=== PATIENT | male | born 1945 | race Caucasian/White ===

== ENCOUNTER → 2017-03-28 | Outpatient (REF) | payer MEDICARE ==
[2017-03-28 12:35] LABS: ALBUMIN 3.3 GM/DL (3.2-5.2); ALBUMIN/GLOBULIN RATIO 0.87 (1.00-1.93); ALKALINE PHOSPHATASE 465 U/L (45-117); ALT/SGPT 20 U/L (12-78); ANION GAP 6 MEQ/L (8-16); AST/SGOT 19 U/L (7-37); BILIRUBIN,TOTAL 0.4 MG/DL (0.2-1.0); BLOOD UREA NITROGEN 14 MG/DL (7-18); CALCIUM LEVEL 8.4 MG/DL (8.8-10.2); CARBON DIOXIDE LEVEL 30 MEQ/L (21-32); CHLORIDE LEVEL 105 MEQ/L (98-107); CHOLESTEROL LEVEL 276 MG/DL (<200); CREATININE FOR GFR 0.89 MG/DL (0.70-1.30); GLOMERULAR FILTRATION RATE > 60.0 (>42); GLUCOSE, FASTING 108 MG/DL (83-110); POTASSIUM SERUM 3.6 MEQ/L (3.5-5.1); SODIUM LEVEL 141 MEQ/L (136-145); TOTAL PROTEIN 7.1 GM/DL (6.4-8.2); TRIGLYCERIDES LEVEL 223 MG/DL (<150)
== END ==
LOC: M SFHCCLAY 07:31
PROVIDERS: ATTEND Family Medicine
DX: Z00.00 Encounter for general adult medical examination without abnormal findings (principal); R97.20 Elevated prostate specific antigen [PSA]; Z79.899 Other long term (current) drug therapy
CPT/HCPCS: 80053; 80061; 84154; 84443; G0103

== ENCOUNTER → 2017-04-01 | Outpatient (REF) | payer MEDICARE | LOC: M SMT 13:00 | PROVIDERS: ATTEND Nurse Practitioner Family | DX: R35.0 Frequency of micturition (principal); R39.15 Urgency of urination | CPT/HCPCS: 51702; 51798; 81001; 87086; G0463 ==

== ENCOUNTER → 2017-04-12 | Outpatient (CLI) | payer MEDICARE ==
--- NOTE | 2017-04-12 12:18 | REP ---
Prostate sonography: History: Elevated PSA. Sonographic findings: Trans rectal prostate sonography demonstrates unremarkable seminal vesicles. Prostate gland is heterogeneously enlarged with calcifications and cystic changes noted. Glandular dimensions are measured at 4.1 x 3.7 x 4.2 cm with a calculated glandular volume of 39.2 ml. There is a 1.8 x 1.2 cm nodule on the right side of the prostate gland. Transrectal sonographic guidance provided to Dr. Alicea who performed trans rectal ultrasound guided needle biopsy procedure . Signed by Octavio Rosales MD 04/12/2017 12:10 P
== END ==
LOC: M SMT PRO 08:51
PROVIDERS: ATTEND Urology
DX: R97.20 Elevated prostate specific antigen [PSA] (principal); R39.89 Other symptoms and signs involving the genitourinary system
CPT/HCPCS: 55700; 76872; 76942; G0416

== ENCOUNTER → 2017-04-15 | Outpatient (CLI) | payer MEDICARE ==
[~2017-04-15] MED LIST: ISOVUE-370 76% 100ML VIAL (Q9967) As Ordered ONE
--- NOTE | 2017-04-15 10:24 | REP ---
CT pelvis with IV but without oral contrast: History: Prostate carcinoma. CT contrast dose: 100 ml of Isovue [address] findings: There is a large left inguinal hernia noted containing an unobstructed loop of sigmoid colon. There is a large amount of pericolonic fat within the hernia sac as well. There is diffuse bladder wall thickening. The bladder is displaced somewhat to the right because of the hernia. Prostate is somewhat enlarged and heterogeneous. The seminal vesicles are somewhat asymmetric with fluid in the right seminal vesicle. No pelvic masses seen. There is one normal-sized internal iliac lymph node on the right visible on image number 59 of 117 in series 201 of today's study. This normal-sized lymph node measures 6 mm in greatest dimension. There is a normal fat replaced external iliac lymph node on the left a little higher in the pelvis. There is no visible adenopathy. Atherosclerotic calcification is seen in the aorta and iliac arteries. Small and large intestinal bowel loops are normal. No other abdominal wall defect is seen. There are degenerative changes in the lower lumbar spine. In addition, however, the bone window settings demonstrate widespread areas of sclerosis consistent with blastic skeletal metastases. These are seen in the lower two lumbar spine vertebrae as well as the sacrum and both iliac bones and the right proximal femur. Impression: 1. Fairly widespread blastic metastatic pattern in the visualized skeleton. 2. Large left inguinal hernia containing an unobstructed loop of sigmoid colon and a large amount of abdominal fat. 3. No evidence of adenopathy. The seminal vesicles are somewhat asymmetric with fluid in the right seminal vesicle. Signed by Octavio Rosales MD 04/15/2017 11:14 A
--- NOTE | 2017-04-15 14:02 | REP ---
Whole body radionuclide bone scan: History: Prostate carcinoma. No comparison bone scan. Technique: 22.0 mCi technetium 99m MDP is injected and standard bone scan images are acquired. Planar and whole body images are included. Scintigraphic findings: There is widespread multifocal metastatic pattern of increased uptake in the axial skeleton. Lesions are seen in both femurs, both humeri, both scapulae, throughout the pelvis, and within the cervical, thoracic, and lumbar spine. There are two or three calvarial lesions and there are mandibular lesions bilaterally as well. Uptake is observed in bilateral kidneys and in the urinary bladder. There is some arthritic uptake in the knees. 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 Signed by Octavio Rosales MD 04/15/2017 02:46 P
== END ==
LOC: M RAD 09:29
PROVIDERS: ATTEND Urology
DX: C61 Malignant neoplasm of prostate (principal)
CPT/HCPCS: 72193; 78306; A9503; Q9967

== ENCOUNTER → 2017-04-27 | Outpatient (REF) | payer OTHER | LOC: M LAB REF 13:29 | PROVIDERS: ATTEND Internal Medicine Medical Oncology | DX: C61 Malignant neoplasm of prostate (principal) ==

== ENCOUNTER → 2017-05-17 | Outpatient (REF) | payer MEDICARE | LOC: M SFHCCLAY 09:12 | DX: C61 Malignant neoplasm of prostate (principal) | CPT/HCPCS: 84153 ==

== ENCOUNTER → 2017-05-27 | Outpatient (REF) | payer MEDICARE ==
[2017-05-27 14:49] LABS: TESTOSTERONE 22 NG/DL (241-827)
== END ==
LOC: M LAB REF 13:20
DX: C61 Malignant neoplasm of prostate (principal)
CPT/HCPCS: 84403

== ENCOUNTER → 2017-06-23 | Outpatient (REF) | payer MEDICARE ==
[2017-06-24 14:11] LABS: PSA TOTAL 74.9 ng/mL (0.0-4.0)
== END ==
LOC: M SFHCCLAY 08:07
DX: R97.20 Elevated prostate specific antigen [PSA] (principal)
CPT/HCPCS: 84154

== ENCOUNTER → 2017-10-17 | Outpatient (REF) | payer MEDICARE ==
[2017-10-17 14:45] LABS: TESTOSTERONE < 7 NG/DL (241-827)
[2017-10-17 15:00] LABS: PROSTATIC SPECIFIC AG MONITOR 0.31 NG/ML (< 4.0)
== END ==
LOC: M LAB REF 14:05
DX: C61 Malignant neoplasm of prostate (principal)
CPT/HCPCS: 84403

== ENCOUNTER 2017-11-16 12:08 | Emergency (ER) | payer MEDICARE ==
[2017-11-16] MEDS: ACETAMINOPHEN 325 MG TAB PO (12:55)
[2017-11-16 13:02] LABS: HEMATOCRIT 39.3 % (42.0-52.0); MEAN CORPUSCULAR HEMOGLOBIN 31.2 pg (27.0-33.0); MEAN CORPUSCULAR HGB CONC 33.1 g/dl (32.0-36.5); MEAN CORPUSCULAR VOLUME 94.2 fl (80.0-96.0); PLATELET COUNT, AUTOMATED 168 10^3/uL (150-450); RED BLOOD COUNT 4.17 10^6/uL (4.30-6.10); RED CELL DISTRIBUTION WIDTH 15.5 % (11.5-14.5); WHITE BLOOD COUNT 4.8 10^3/uL (4.0-10.0)
[2017-11-16 13:08] LABS: AMORPHOUS SEDIMENT RFX SMALL (NEGATIVE); KETONE, URINE AUTO RFX TRACE mg/dL (NEGATIVE); LEUKOCYTE ESTERASE UR AUTO RFX TRACE (NEGATIVE); NITRITE, URINE AUTO RFX NEGATIVE (NEGATIVE); RBC, URINE AUTO RFX 3 /HPF (0-3); SPECIFIC GRAVITY UR AUTO RFX 1.014 (1.002-1.035); SQUAM EPITHELIAL CELL UR AURFX 0 /HPF (0-6); WBC, URINE AUTO RFX 33 /HPF (0-3)
[2017-11-16 13:21] LABS: ANION GAP 8 MEQ/L (8-16); BLOOD UREA NITROGEN 14 MG/DL (7-18); CALCIUM LEVEL 7.9 MG/DL (8.8-10.2); CARBON DIOXIDE LEVEL 27 MEQ/L (21-32); CHLORIDE LEVEL 100 MEQ/L (98-107); CREATININE FOR GFR 0.98 MG/DL (0.70-1.30); GLOMERULAR FILTRATION RATE > 60.0 (>42); GLUCOSE, FASTING 102 MG/DL (70-100); POTASSIUM SERUM 3.8 MEQ/L (3.5-5.1); SODIUM LEVEL 135 MEQ/L (136-145)
[2017-11-16] MEDS: CIPROFLOXACIN 500 MG TAB PO (14:05)
== END 2017-11-16 14:05 | disposition home or self-care (01) ==
LOC: M ED 12:08
DX: N39.0 Urinary tract infection, site not specified (principal); C61 Malignant neoplasm of prostate; Z79.899 Other long term (current) drug therapy
CPT/HCPCS: 80048

== ENCOUNTER → 2017-11-23 | Outpatient (REF) | payer MEDICARE ==
[2017-11-23 18:39] LABS: PROSTATIC SPECIFIC AG MONITOR 0.24 NG/ML (< 4.0)
== END ==
LOC: M LABSMT 11:44
DX: C61 Malignant neoplasm of prostate (principal)
CPT/HCPCS: 84153

== ENCOUNTER → 2018-05-30 | Outpatient (REF) | payer MEDICARE ==
[~2018-05-30] MED LIST changes: +CALC600T57 PO; +CIPR-249 PO; -ISOVUE-370 76% 100ML VIAL (Q9967) As Ordered ONE; +PRED5PAK PO; +PRED5TA PO; +VITATAB73 PO; +XGEVINJ SC; +ZYTI250T PO
== END ==
LOC: M LABSMT 09:26
PROVIDERS: ATTEND Urology
DX: C61 Malignant neoplasm of prostate (principal)

== ENCOUNTER → 2018-07-21 | Outpatient (CLI) | payer MEDICARE ==
--- NOTE | 2018-07-21 13:34 | REP ---
Whole body radionuclide bone scan: Comparison is 04/15/2017. On the comparison study there was widespread skeletal metastatic disease. On the current study this has dramatically improved. There is a focus of uptake in the mid shaft of the right femur. There is mildly persistent uptake in the hip intertrochanteric areas bilaterally. No other metastatic foci are identified on the current study. There is a bilaterally symmetric pattern of degenerative uptake in the shoulders and knees. Impression: Dramatic improvement of the previously identified widespread skeletal metastatic disease. The study is performed with 22 millicuries of technetium 99m labeled MDP. Electronically Signed by Sergo Win MD 07/21/2018 01:26 P
== END ==
LOC: M RAD 09:19
PROVIDERS: ATTEND Internal Medicine Hematology & Oncology
DX: C79.51 Secondary malignant neoplasm of bone (principal); C61 Malignant neoplasm of prostate
CPT/HCPCS: 78306; A9503

== ENCOUNTER → 2018-10-23 | Outpatient (CLI) | payer MEDICARE ==
[~2018-10-23] MED LIST changes: +GASTROGRAFIN SOLUTION 30ML (Q9963) As Ordered ONE; +ISOVUE-370 76% 100ML VIAL (Q9967) As Ordered ONE
--- NOTE | 2018-10-23 16:19 | REP ---
CT CHEST WITH IV CONTRAST: TECHNIQUE: Axial contrast enhanced images from the thoracic inlet to the upper abdomen using 100 mL Isovue 370 intravenous contrast material with multiplanar reformations. The lungs show no suspicious nodule. A tiny calcified granuloma is seen in the left upper lobe peripherally. There is no evidence of mediastinal, hilar or chest wall lymphadenopathy. There is no pleural or pericardial effusion. The heart is normal in size. Thoracic aorta demonstrates some minor plaquing with mild ectasia of the ascending thoracic aorta 4 cm in diameter. Visualized osseous structures demonstrates heterogenous sclerotic densities consistent with diffuse blastic metastases as seen on prior bone scans. IMPRESSION: No suspicious pulmonary nodule. No adenopathy in the chest. Diffuse heterogenous sclerotic densities throughout the visualized osseous structures compatible with diffuse skeletal metastases as seen on prior nuclear bone scans. Electronically Signed by Sergo Carias MD 10/24/2018 12:39 P
--- NOTE | 2018-10-23 16:46 | REP ---
CT ABDOMEN WITH ORAL AND IV CONTRAST: TECHNIQUE: Axial contrast enhanced images from the lung bases to the pubic symphysis using 100 mL Isovue 370 intravenous contrast material with multiplanar reformations. The liver demonstrates several hypodensities in the left and right lobes. The largest is in the anterior segment of the right lobe inferiorly and measures approximately 2.4 cm in diameter. Density measurements are consistent with a cyst. The other subcentimeter nodular densities in the right and left lobes also appear fairly low in density and probably represent smaller cysts. No definite enhancing liver mass is seen. Spleen is unremarkable as are the adrenals and pancreas. No abnormality is seen of the kidneys. There is no hydronephrosis. There is mild atherosclerotic calcifications of the abdominal aorta without aneurysm. I see no adenopathy, free air or free fluid. No bowel wall thickening is seen in the visualized bowel loops. Diffuse sclerotic densities throughout the visualized osseous structures are consistent with extensive blastic metastases as seen on prior nuclear bone scans. There is a small midline ventral hernia in the upper abdomen, containing only intraperitoneal fat and the aperture measuring 1.4 cm in diameter. IMPRESSION: Multiple cysts in the liver. No suspicious mass or adenopathy. Diffuse blastic metastases in the visualized osseous structures as seen on prior nuclear bone scans. Electronically Signed by Sergo Carias MD 10/24/2018 12:39 P
== END ==
LOC: M RAD 13:07
PROVIDERS: ATTEND Nurse Practitioner Family
DX: C61 Malignant neoplasm of prostate (principal); R97.20 Elevated prostate specific antigen [PSA]
CPT/HCPCS: 71260; 74160; Q9963; Q9967

== ENCOUNTER → 2019-01-02 | Outpatient (CLI) | payer MEDICARE ==
[~2019-01-02] MED LIST changes: -GASTROGRAFIN SOLUTION 30ML (Q9963) As Ordered ONE; -ISOVUE-370 76% 100ML VIAL (Q9967) As Ordered ONE
--- NOTE | 2019-01-02 15:15 | REP ---
WHOLE BODY BONE SCAN: Following the intravenous administration of 21.7 mCi of technetium-99m MDP, patient's whole body is imaged in the anterior and posterior projections with additional oblique and lateral views obtained. Comparison made with prior studies of 07/21/2018 and 04/15/2017. A small focus of increased uptake is seen in the proximal right humeral shaft. New focal increased uptake is seen in the medial end of the right clavicle. Small focus of increased uptake in the mid shaft of the right femur is unchanged. There is mild heterogeneous increased uptake in the remaining more proximal femurs bilaterally which is stable. No other new foci of increased uptake are seen in the axial or appendicular skeleton. Renal and bladder activity are seen. IMPRESSION: New small focus of increased uptake in the proximal shaft of the right humerus and also in the medial end of the right clavicle. Scintigraphic appearance of the skeletal system is otherwise stable compared to the prior study of 07/21/2018. Electronically Signed by Sergo Carias MD 01/03/2019 01:01 P
== END ==
LOC: M RAD 07:39
PROVIDERS: ATTEND Internal Medicine Hematology & Oncology
DX: C61 Malignant neoplasm of prostate (principal); C79.51 Secondary malignant neoplasm of bone
CPT/HCPCS: 78306; A9503

== ENCOUNTER → 2019-06-12 | Outpatient (CLI) | payer MEDICARE ==
[~2019-06-12] MED LIST changes: +DECA6TAB PO; +MACR100C42 PO; +XTAN40CA PO
--- NOTE | 2019-06-12 13:47 | REP ---
Whole body radionuclide bone scan: Comparison is 01/02/2019. The uptake in the right clavicle medially has increased in size and activity. The uptake in the proximal right humeral shaft is increased in size and intensity. There is a new focus of faintly visible uptake in the proximal shaft of the left humerus. There is a small focus of uptake in the mid shaft of the right humerus, not significantly changed. There is a small faintly visible new focus of uptake in the proximal shaft of the left femur . There is mild uptake in the femoral intertrochanteric zones bilaterally, unchanged. There is a degenerative pattern of uptake in the medial joint lines of the knees bilaterally, unchanged. Impression: New small faintly visible foci of uptake in the proximal shaft of the left humerus and in the proximal shaft of the left femur. The foci in the right clavicle and proximal right humeral shaft have increased. The focus in the right femoral midshaft is unchanged. Mild uptake in the femoral intertrochanteric zones is unchanged. The study is performed with 22 mCi of technetium 99m labeled MDP. Electronically Signed by Sergo Win MD 06/12/2019 01:39 P
== END ==
LOC: M RAD 09:01
PROVIDERS: ATTEND Internal Medicine Hematology
DX: C61 Malignant neoplasm of prostate (principal)
CPT/HCPCS: 78306; A9503

== ENCOUNTER → 2019-09-05 | Outpatient (CLI) | payer MEDICARE ==
[~2019-09-05] MED LIST changes: +ERLE60TA PO; +GASTROGRAFIN SOLUTION 30ML (Q9963) As Ordered ONE; +ISOVUE-370 76% 100ML VIAL As Ordered ONE; +ONDA8TAB10 PO; +PRED10TA2 PO
--- NOTE | 2019-09-05 09:48 | REP ---
CT CHEST WITH IV CONTRAST: TECHNIQUE: Axial contrast enhanced images from the thoracic inlet to the upper abdomen using 100 mL Isovue 370 intravenous contrast material with multiplanar reformations. COMPARISON: 10/23/2018 No suspicious nodule is seen in either lung. There is a tiny calcified granuloma in the left apex. There is mild scattered interstitial fibrotic change. There is no mediastinal, hilar or chest wall lymphadenopathy. Thoracic aorta is normal in caliber with no aneurysm or dissection. The heart is normal in size. There is no pleural or pericardial effusion. Diffuse heterogeneous and sclerotic densities are seen throughout the visualized osseous structures consistent with diffuse skeletal metastases. The appearance is unchanged compared to a prior study. IMPRESSION: Stable CT of the chest. No new pulmonary nodule or adenopathy. Diffuse sclerotic densities throughout the visualized osseous structures compatible with diffuse skeletal metastases, as seen on prior studies. Electronically Signed by Sergo Carias MD 09/05/2019 11:17 A
--- NOTE | 2019-09-05 09:54 | REP ---
CT ABDOMEN AND PELVIS WITH ORAL AND IV CONTRAST: TECHNIQUE: Axial contrast enhanced images from the lung bases to the pubic symphysis using 100 mL Isovue 370 intravenous contrast material with multiplanar reformations. COMPARISON: 10/23/2018 and 04/15/2017. Once again there are multiple small cysts scattered throughout the liver not significantly changed compared to a prior study. No new suspicious liver mass is seen. The spleens normal in size with no intrinsic abnormality. The adrenal glands are normal. No pancreatic mass is seen. There is no biliary dilatation or pancreatic duct dilatation. The kidneys are unremarkable with no hydronephrosis. There is mild atherosclerotic calcification of the abdominal aorta without aneurysm. There is no adenopathy. There is no free air or free fluid. There is no bowel wall thickening. No pelvic mass is seen. There is a large left inguinal hernia containing sigmoid colon. There is no evidence of strangulation or bowel obstruction. There are sigmoid diverticula present. There is a small ventral hernia in the supraumbilical abdominal wall, the aperture is approximately 1.4 cm. This contains non-inflamed fat. Diffuse sclerotic densities throughout the visualized osseous structures are compatible with diffuse skeletal metastases. IMPRESSION: No change since the prior studies. Stable liver cysts. No new abdominal or pelvic mass or adenopathy. Superior ventral hernia in the midline contains noninflamed fat. Large left inguinal hernia contains a loop of sigmoid colon, with no evidence of strangulation or bowel obstruction. Diffuse blastic metastases throughout the visualized osseous structures appear essentially unchanged. Electronically Signed by Sergo Carias MD 09/05/2019 11:18 A
--- NOTE | 2019-09-05 12:34 | REP ---
REASON FOR EXAM: Followup. Comparison examination is 06/12/2019. After the intravenous administration of 22 millicuries of technetium 99m MDP, a total body bone scan was obtained. The abnormal increased radionuclide accumulation seen in the right humerus, right clavicle, and right femur has all worsened. In addition, there is marked abnormal increased radiotracer within the skull and significant abnormal increased radionuclide accumulation seen in the imaged axial and appendicular skeleton all representing a change from the prior exam. IMPRESSION: Diffuse skeletal metastasis has developed since the last exam. Electronically Signed by Hung Hermosillo DO 09/05/2019 03:48 P
== END ==
LOC: M RAD 07:12
PROVIDERS: ATTEND Internal Medicine Medical Oncology
DX: C61 Malignant neoplasm of prostate (principal)
CPT/HCPCS: 71260; 74177; 78306; A9503; Q9963; Q9967

== ENCOUNTER → 2019-09-07 | Outpatient (CLI) | payer MEDICARE ==
[~2019-09-07] MED LIST changes: -GASTROGRAFIN SOLUTION 30ML (Q9963) As Ordered ONE; -ISOVUE-370 76% 100ML VIAL As Ordered ONE
== END ==
LOC: M LAB 09:46
PROVIDERS: ATTEND Internal Medicine Hematology
DX: C61 Malignant neoplasm of prostate (principal)

== ENCOUNTER → 2019-09-17 | Outpatient (REF) | payer MEDICARE ==
[2019-09-17 11:59] LABS: BASO # 0.1 10^3/uL (0.0-0.2); BASO % 0.8 % (0.0-1.0); EOS # 0.1 10^3/uL (0.0-0.5); EOS % 0.7 % (0.0-3.0); HEMATOCRIT 33.3 % (42.0-52.0); LYMPH # 1.9 10^3/uL (1.5-5.0); LYMPH % 11.3 % (24.0-44.0); MEAN CORPUSCULAR HEMOGLOBIN 29.2 pg (27.0-33.0); MEAN CORPUSCULAR VOLUME 97.1 fl (80.0-96.0); MONO % 5.8 % (0.0-5.0); NEUTROPHILS # 10.5 10^3/uL (1.5-8.5); NEUTROPHILS % 62.1 % (36.0-66.0); PLATELET COUNT, AUTOMATED 141 10^3/uL (150-450); RED BLOOD COUNT 3.43 10^6/uL (4.30-6.10); WHITE BLOOD COUNT 16.8 10^3/uL (4.0-10.0)
[2019-09-17 12:50] LABS: ALBUMIN 3.3 GM/DL (3.2-5.2); ALT/SGPT 20 U/L (12-78); BILIRUBIN,TOTAL 0.2 MG/DL (0.2-1.0); BLOOD UREA NITROGEN 17 MG/DL (7-18); CALCIUM LEVEL 8.4 MG/DL (8.8-10.2); CARBON DIOXIDE LEVEL 27 MEQ/L (21-32); CHLORIDE LEVEL 106 MEQ/L (98-107); CREATININE FOR GFR 0.82 MG/DL (0.70-1.30); GLOMERULAR FILTRATION RATE > 60.0 (>42); GLUCOSE, FASTING 77 MG/DL (70-100); POTASSIUM SERUM 4.5 MEQ/L (3.5-5.1); SODIUM LEVEL 141 MEQ/L (136-145); TOTAL PROTEIN 6.5 GM/DL (6.4-8.2)
== END ==
LOC: M LABDRAWC 11:36
PROVIDERS: ATTEND Internal Medicine Hematology
DX: C61 Malignant neoplasm of prostate (principal)

== ENCOUNTER → 2019-09-27 | Outpatient (REF) | payer MEDICARE ==
[2019-09-27 11:43] LABS: BASO # 0.1 10^3/uL (0.0-0.2); BASO % 1.3 % (0.0-1.0); EOS # 0.1 10^3/uL (0.0-0.5); EOS % 0.6 % (0.0-3.0); HEMATOCRIT 32.4 % (42.0-52.0); HEMOGLOBIN 9.7 g/dl (13.5-17.5); LYMPH # 1.3 10^3/uL (1.5-5.0); LYMPH % 13.4 % (24.0-44.0); MEAN CORPUSCULAR HEMOGLOBIN 29.1 pg (27.0-33.0); MEAN CORPUSCULAR HGB CONC 29.9 g/dl (32.0-36.5); MEAN CORPUSCULAR VOLUME 97.3 fl (80.0-96.0); MONO # 1.1 10^3/uL (0.0-0.8); MONO % 11.6 % (0.0-5.0); NEUTROPHILS # 6.1 10^3/uL (1.5-8.5); NEUTROPHILS % 64.8 % (36.0-66.0); PLATELET COUNT, AUTOMATED 155 10^3/uL (150-450); RED BLOOD COUNT 3.33 10^6/uL (4.30-6.10); WHITE BLOOD COUNT 9.4 10^3/uL (4.0-10.0)
[2019-09-27 13:05] LABS: ALBUMIN 3.4 GM/DL (3.2-5.2); ALT/SGPT 20 U/L (12-78); BILIRUBIN,TOTAL 0.3 MG/DL (0.2-1.0); BLOOD UREA NITROGEN 13 MG/DL (7-18); CALCIUM LEVEL 7.9 MG/DL (8.8-10.2); CARBON DIOXIDE LEVEL 26 MEQ/L (21-32); CHLORIDE LEVEL 104 MEQ/L (98-107); CREATININE FOR GFR 0.75 MG/DL (0.70-1.30); GLOMERULAR FILTRATION RATE > 60.0 (>42); GLUCOSE, FASTING 105 MG/DL (70-100); POTASSIUM SERUM 3.8 MEQ/L (3.5-5.1); SODIUM LEVEL 138 MEQ/L (136-145); TOTAL PROTEIN 6.9 GM/DL (6.4-8.2)
== END ==
LOC: M LABDRAWC 11:25
PROVIDERS: ATTEND Internal Medicine Hematology
DX: C61 Malignant neoplasm of prostate (principal)

== ENCOUNTER → 2019-11-08 | Outpatient (REF) | payer MEDICARE ==
[2019-11-08 14:07] LABS: BASO # 0.1 10^3/uL (0.0-0.2); BASO % 0.7 % (0.0-1.0); EOS # 0.1 10^3/uL (0.0-0.5); EOS % 1.1 % (0.0-3.0); HEMATOCRIT 22.3 % (42.0-52.0); LYMPH # 1.6 10^3/uL (1.5-5.0); LYMPH % 19.2 % (24.0-44.0); MEAN CORPUSCULAR HEMOGLOBIN 28.4 pg (27.0-33.0); MEAN CORPUSCULAR HGB CONC 29.1 g/dl (32.0-36.5); MEAN CORPUSCULAR VOLUME 97.4 fl (80.0-96.0); MONO # 0.7 10^3/uL (0.0-0.8); MONO % 8.1 % (0.0-5.0); NEUTROPHILS # 4.6 10^3/uL (1.5-8.5); NEUTROPHILS % 56.8 % (36.0-66.0); PLATELET COUNT, AUTOMATED 190 10^3/uL (150-450); RED BLOOD COUNT 2.29 10^6/uL (4.30-6.10); WHITE BLOOD COUNT 8.1 10^3/uL (4.0-10.0)
[2019-11-08 14:11] LABS: HEMOGLOBIN 6.5 g/dl (13.5-17.5)
[2019-11-08 14:12] LABS: ALBUMIN 2.7 GM/DL (3.2-5.2); ALT/SGPT 61 U/L (12-78); BILIRUBIN,TOTAL 0.5 MG/DL (0.2-1.0); BLOOD UREA NITROGEN 18 MG/DL (7-18); CARBON DIOXIDE LEVEL 23 MEQ/L (21-32); CHLORIDE LEVEL 104 MEQ/L (98-107); CREATININE FOR GFR 0.88 MG/DL (0.70-1.30); GLOMERULAR FILTRATION RATE > 60.0 (>42); GLUCOSE, FASTING 115 MG/DL (70-100); POTASSIUM SERUM 4.1 MEQ/L (3.5-5.1); SODIUM LEVEL 139 MEQ/L (136-145); TOTAL PROTEIN 6.7 GM/DL (6.4-8.2)
== END ==
LOC: M LABDRAWC 13:35
PROVIDERS: ATTEND Internal Medicine Medical Oncology
DX: C61 Malignant neoplasm of prostate (principal)

== ENCOUNTER 2019-11-22 12:11 | Inpatient (IN) | payer MEDICARE ==
[~2019-11-22] VITALS: Ht 172.7 cm; Wt 84.7 kg
[2019-11-22] MEDS: PIPERACILLIN/TAZOBACTAM SOD 3.375 GM in D5W MINI-BAG PLUS 50 ML IV SCH ×2
[2019-11-22] MEDS ORDERED: ACETAMINOPHEN 325 MG TAB PO ONE (12:45)
[2019-11-22 13:06] LABS: HEMATOCRIT 22.1 % (42.0-52.0); MEAN CORPUSCULAR HEMOGLOBIN 28.9 pg (27.0-33.0); MEAN CORPUSCULAR HGB CONC 30.8 g/dl (32.0-36.5); RED BLOOD COUNT 2.35 10^6/uL (4.30-6.10); WHITE BLOOD COUNT 6.9 10^3/uL (4.0-10.0)
[2019-11-22 13:12] LABS: HEMOGLOBIN 6.8 g/dl (13.5-17.5); PLATELET COUNT, AUTOMATED 76 10^3/uL (150-450)
[2019-11-22 13:19] LABS: INR 1.32; PROTHROMBIN TIME 16.1 SECONDS (11.8-14.0)
[2019-11-22 13:41] LABS: ALBUMIN 2.9 GM/DL (3.2-5.2); ALT/SGPT 20 U/L (12-78); BILIRUBIN,DIRECT 0.2 MG/DL (0.0-0.2); BILIRUBIN,TOTAL 0.5 MG/DL (0.2-1.0); CK-MB VALUE MASS < 1.0 NG/ML (<3.6); CPK CREATINE PHOSPHOKINASE 91 U/L (39-308); LIPASE 92 U/L (73-393); TOTAL PROTEIN 6.8 GM/DL (6.4-8.2); TROPONIN I < 0.02 NG/ML (< 0.10)
[2019-11-22 14:01] LABS: ANISOCYTOSIS 2+; EOSINOPHILS 1 % (0-3); LYMPHOCYTES 19 % (16-44); METAMYELOCYTES 2 % (0-0); MONOCYTES 4 % (0-5); NEUTROPHILS 68 % (28-66); PLATELET ESTIMATE DECREASED (NORMAL)
--- NOTE | 2019-11-22 15:40 | REP ---
REASON FOR EXAM: Pyrexia. There are no priors for comparison. The imaged osseous structures are hyperdense. The technique utilized in obtaining the radiograph has magnified the cardiac silhouette and accentuated the interstitial markings. There is suspected mild cardiomegaly accentuated by technique. No acute patchy parenchymal opacities or pleural effusions are present. IMPRESSION: 1. Hyperdense axial and appendicular skeletal highly suspicious for metastatic prostate disease. Review of prior bone scan 09/05/2019 showed evidence of increased radionuclide accumulation in the axial and appendicular skeleton consistent with skeletal metastasis and prostate disease. 2. There is no evidence of acute cardiopulmonary disease. Electronically Signed by Hung Hermosillo DO 11/22/2019 04:59 P
[2019-11-22] MEDS ORDERED: NS 1,000 ML IV ONE (15:45)
[2019-11-22] MEDS ORDERED: PIPERACILLIN/TAZOBACTAM SOD 3.375 GM in D5W MINI-BAG PLUS 50 ML IV ONE (16:00)
[2019-11-22 16:34] LABS: FERRITIN 7032 NG/ML (26-388); IRON (FE) 43 UG/DL (65-175); PERCENT SATURATION 20.5 % (19.7-50.0); TOTAL IRON BINDING CAPACITY 210 UG/DL (250-450)
[2019-11-22 18:07] VITALS: BP 127/72
[2019-11-22 19:01] LABS: HEMATOCRIT 23.7 % (42.0-52.0); HEMOGLOBIN 7.4 g/dl (13.5-17.5)
[2019-11-22 20:38] VITALS: BP 153/70
[2019-11-22] MEDS ORDERED: VANCOMYCIN HCL 1,000 MG, VIAL MATE ADAPTER 1 EACH in D5W 250 ML IV ONE (21:00)
[2019-11-22] MEDS ORDERED: VANCOMYCIN HCL 750 MG, VIAL MATE ADAPTER 1 EACH in D5W 250 ML IV ONE (22:00)
[2019-11-22 22:52] VITALS: BP 127/73
[2019-11-22 23:07] VITALS: BP 142/73
[2019-11-23] VITALS (14 sets, daily range): BP systolic 109–142; BP diastolic 61–75
[2019-11-23] MEDS: traZODone 25MG PER 1/2 TABLET PO PRN ×2 (01:13→20:45)
[2019-11-23] MEDS: PIPERACILLIN/TAZOBACTAM SOD 3.375 GM in D5W MINI-BAG PLUS 50 ML IV SCH ×4 (05:00→23:37)
[2019-11-23 05:59] LABS: HEMOGLOBIN 7.4 g/dl (13.5-17.5); MEAN CORPUSCULAR HEMOGLOBIN 29.1 pg (27.0-33.0); MEAN CORPUSCULAR HGB CONC 32.2 g/dl (32.0-36.5); MEAN CORPUSCULAR VOLUME 90.6 fl (80.0-96.0); RED BLOOD COUNT 2.54 10^6/uL (4.30-6.10); WHITE BLOOD COUNT 6.6 10^3/uL (4.0-10.0)
[2019-11-23] MEDS ORDERED: VANCOMYCIN HCL 1,000 MG, VIAL MATE ADAPTER 1 EACH in D5W 250 ML IV SCH (06:00)
[2019-11-23 06:13] LABS: BLOOD UREA NITROGEN 8 MG/DL (7-18); CALCIUM LEVEL 6.8 MG/DL (8.8-10.2); CARBON DIOXIDE LEVEL 22 MEQ/L (21-32); CHLORIDE LEVEL 104 MEQ/L (98-107); CREATININE FOR GFR 0.58 MG/DL (0.70-1.30); GLOMERULAR FILTRATION RATE > 60.0 (>42); GLUCOSE, FASTING 123 MG/DL (70-100); POTASSIUM SERUM 3.7 MEQ/L (3.5-5.1); SODIUM LEVEL 134 MEQ/L (136-145)
[2019-11-23 06:22] LABS: PLATELET COUNT, AUTOMATED 59 10^3/uL (150-450)
[2019-11-23 06:51] LABS: BASOPHILS 1 % (0-1); LYMPHOCYTES 20 % (16-44); METAMYELOCYTES 3 % (0-0); MONOCYTES 12 % (0-5); NEUTROPHILS 60 % (28-66); PLATELET ESTIMATE MARKED DECREASE (NORMAL)
--- NOTE | 2019-11-23 09:31 | HPE ---
DATE OF ADMISSION: 11/22/2019 CHIEF COMPLAINT: "I don't have any energy". HISTORY OF PRESENT ILLNESS: This is a 74-year-old male with a history of recent 4+4 stage [id number] adenocarcinoma of the prostate seen by Dr. Alicea with very low levels of PSA that started to rise in September sum 0.1, 4 to 5.73 in September 2018. The patient had a CT chest, abdomen and pelvis in August 2019, which showed no evidence of metastatic disease outside of the skeleton; however, bone scan showed diffuse sclerotic lesions that appeared to be worse. The patient began cabazitaxel therapy, a single agent with first dose administered on 09/07/2019 and had a followup appointment with medical oncologist, Dr. Lennon on November 22, 2019. For the past month, the patient has been increasingly fatigued and with generalized weakness with some shortness of breath, said that when he started doing something, he just did not have any energy. He was seen in the medical oncology office, was given 2 units of red blood cell transfusion and a "shot" and had felt better for a few days. When he returned for followup, he was noted to have hemoglobin of 7 again with complaints of dark stools and was sent to the emergency room (ER) for further evaluation. The patient denies any palpitations, chest pain, pressure or tightness. Says that he has had no dizziness or lightheadedness. Denies any hematemesis, bright red blood per rectum, but noted that his stool today was black. In the emergency room (ER), he had a temperature of 102. Hemoglobin was 6.8, hematocrit of 22. He had been recently transfused on 11/08/2019 for hemoglobin of 6.5, increased to 8 and hematocrit of 26, yesterday was 7.5 in the office at 10 a.m. and in the emergency room (ER) at 12:30 was 6.8. Hospitalist was asked to admit the patient for evaluation of fever and for blood transfusion for chemotherapy related anemia. PAST MEDICAL HISTORY: 1. Prostate cancer with bone metastasis. 2. Hypertension. 3. Lyme disease. ALLERGIES: No known drug allergies. PAST SURGICAL HISTORY: Bilateral cataract removal, TRUS biopsy 2016. FAMILY HISTORY: Father at 93 of old age, unknown medical issues. Mother of congestive heart failure (CHF) in her 70s. Diagnosed also with cerebral artery occlusion with cerebral infarction. The patient has one brother that of leukemia, one son of coronary artery disease, myocardial infarction (CO) at the age of 44, another brother with pancreatic cancer. HOME MEDICATIONS: - Xgeva 120 mg subcutaneous every month - Zofran 8 mg by mouth every 6 hours as needed - prednisone 10 mg tapered dose - calcium vitamin D one tablet daily REVIEW OF SYSTEMS: Per history of present illness, otherwise negative. PHYSICAL EXAMINATION: Temperature 102, pulse 94, respiratory rate 24, blood pressure 165/90, 98% on room air. General: Awake, alert, and oriented to person, place and time. Pallor. No icterus, no jaundice. Pupils are nonreactive. Extraocular muscles are intact. Face is symmetric. Tongue is midline. Lungs: Clear to auscultation. No wheezing, rales or rhonchi. Heart: S1, S2, irregularly irregular. Abdomen: Soft, nontender, nondistended. Extremities: No cyanosis, clubbing or pitting edema. LABORATORY: White count 6.9, hemoglobin 6.8, hematocrit 22, platelet count is 76. Sodium 134, potassium 4, chloride 101, bicarbonate 22, BUN 20, creatinine 0.8, glucose of 171. MICROBIOLOGY: Respiratory panel is negative. COVID negative. Two sets of blood cultures negative. Urinalysis: 1+ protein, 2 urobilinogen, negative leukocyte esterase, 1 white blood count (WBC), negative bacteria . Chest x-ray 11/22/2019: Metastatic prostate disease with hyperdense axial and appendicular skeletal findings. Evidence of increase of radionuclide accumulation, axial appendicular skeleton consistent with skeletal metastasis and prostate disease. No evidence of acute cardiopulmonary disease. ASSESSMENT AND PLAN: This is a 74-year-old chronically immunocompromised male with history of metastatic prostate cancer to the bone, presents with persistent generalized weakness, symptomatic anemia, found to have a sub rate control and severe anemia requiring red blood cell (RBC) transfusion. The patient was transfused in October, now returns with severe anemia, most likely chemotherapy induced with hemoglobin of 6.8. IMPRESSION: 1. Symptomatic anemia, most likely related to his current chemotherapy. The patient will be transfused 2 units of red blood cells (RBCs). Check hemoglobin and hematocrit, stool for blood and study smear and reticulocyte count. 2. Fever, chronically immunocompromised prostate cancer patient with bone metastasis. Will be empirically covered with gram positive and negative coverage with vancomycin. Currently, the patient's work up has been negative. Chest x-ray has no acute cardiopulmonary process. Blood cultures have been obtained. He currently has negative urinalysis and has no urinary symptoms. Respiratory panel is negative for COVID-19 or viral illness. Will continue with empiric antibiotics for 48 to 72 hours. If negative work up will discontinue. Medical oncologist will be consulted. 3. Prostate cancer with bone metastasis, currently with a fever and symptomatic anemia, most likely chemotherapy induced. Defer to the patient's oncologist for any further changes in management. At this time, he will be transfused 2 units of red blood cells (RBCs) , check hemoglobin and hematocrit, rule out gastrointestinal (GI) bleed and will be given antibiotics empirically due to chronically immunosuppressed state while on chemotherapy. CODE STATUS: Full code. MTDD
--- NOTE | 2019-11-23 10:11 | ECGEPIP ---
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
[2019-11-23] MEDS ORDERED: SENOKOT S TAB PO PRN (10:45)
[2019-11-23] MEDS: ACETAMINOPHEN 500 MG TAB PO SCH ×3 (11:41→23:37)
[2019-11-23] MEDS ORDERED: ONDANSETRON 4MG/2ML VIAL IV ONE (14:30)
[2019-11-23] MEDS: ANALGESIC BALM CRM 120 GM TOP SCH ×3 (14:39→20:33)
--- NOTE | 2019-11-23 14:57 | REP ---
RIGHT HIP, TWO VIEWS: Two views of the right hip are performed. Diffuse sclerotic metastases are seen in the visualized osseous structures. There are mild degenerative changes at the right hip joint with mild joint space narrowing and spurring. No acute fracture or dislocation is seen. Electronically Signed by Sergo Carias MD 11/25/2019 11:21 P
[2019-11-23] MEDS ORDERED: SLF 3 ML SYR IV PRN (16:45)
[2019-11-23] MEDS ORDERED: ACETAMINOPHEN 500 MG TAB PO SCH (21:00)
[2019-11-23] MEDS: SLF 3 ML SYR IV SCH (22:00)
--- NOTE | 2019-11-24 00:27 | IPN ---
DATE: 11/23/2019 He complains of pain from the right inner groin into the knee that occurs when he attempts to move and stand up. This has been occurring at home as well. Overnight the patient has had no fever or chills. Despite two units red blood cell (RBC) transfusion, he remains anemic with hemoglobin 7.4, hematocrit of 23, most likely chemotherapy induced according to Dr. Lennon. The patient has not had any fever and was given empiric antibiotics yesterday with IV vancomycin and Zosyn. Methicillin-resistant Staphylococcus aureus (MRSA) screen was negative and vancomycin has been discontinued. He remains without a white count. Remains afebrile Urinalysis (UA), chest x-ray are both negative. Blood culture has not grown any bacteria. The patient currently denies any shortness of breath. Complains of still feeling fatigued. No chest pain, pressure, tightness, lightheadedness, or dizziness. He has not gotten up out of bed. Telemetry was sinus with premature atrial contractions (PACs). Denies bright red blood per rectum, melena or black tarry stools, hematemesis or coffee-ground emesis. PHYSICAL EXAM: Vital Signs: Temperature 98.1, pulse 83, respiratory rate 20, blood pressure 109/64, 96% on room air. Generally, patient is awake, alert, oriented to person, place and time, answering questions appropriately. No jugular venous distention (JVD) or thyromegaly. Patient has some pallor. No icterus or jaundice. Lungs are clear to auscultation. No wheezing, rales or rhonchi. Heart: S1, S2, sinus rhythm. No murmurs, rubs or gallops. Abdomen is soft, nontender, nondistended. Positive bowel sounds. Extremities: No cyanosis, clubbing or pitting edema. Patient has point tenderness at the right hip, unable to fully extend and flex at the hip. Internal/external rotation limited due to severe pain. Laboratory data, imaging studies have been reviewed. Microbiology is negative. Respiratory panel is negative. ASSESSMENT AND PLAN: This is a 74-year-old male, history of adenocarcinoma of the prostate with increasing PSA level, on chemotherapy, now with chemotherapy-induced myelosuppression, comes in symptomatic anemia, and also complains of right hip pain. Patient had a fever of 102 and empirically covered with broad-spectrum antibiotics. IMPRESSION: 1. Symptomatic anemia, chemotherapy induced myelosuppression. He is currently suffering from myelosuppression due to his systemic chemotherapy. Per Dr. Lennon, continue to transfuse blood despite having two units of blood with hemoglobin of 6.8 on admission and currently 7.4. Will continue to transfuse two more units of blood for a total of four units since admission. We are checking Hemoccult stool but most likely due to myelosuppression from chemotherapy. 2. Fever in an immunocompromised prostate cancer patient on chemotherapy with bone marrow suppression. He has been empiric antibiotics with IV vancomycin and Zosyn. MRSA screen was negative. Vancomycin discontinued. He is now afebrile with no white count. He is continued on Zosyn for now for about 3 days; therefore, he will not be discharged today or tomorrow. Possible discharge Tuesday or Tuesday pending blood culture results. COVID-19 is negative. Respiratory panel negative. Urinalysis negative. Chest x-ray negative. Awaiting blood culture results. 3. Prostate cancer with bone metastasis (mets). Patient is not tolerating his chemotherapy, currently suffering from myelosuppression. Medical oncology has been consulted for change in regimen. 4. Chronic thrombocytopenia. Again, secondary to myelosuppression from chemotherapy. 5. Lactic acidosis. Most likely due to early sepsis. Cause is currently unknown. MTDD
[2019-11-24 04:00] VITALS: BP 163/93
[2019-11-24 05:22] LABS: MEAN CORPUSCULAR HEMOGLOBIN 29.5 pg (27.0-33.0); MEAN CORPUSCULAR HGB CONC 32.3 g/dl (32.0-36.5); MEAN CORPUSCULAR VOLUME 91.2 fl (80.0-96.0); RED BLOOD COUNT 3.29 10^6/uL (4.30-6.10); WHITE BLOOD COUNT 6.4 10^3/uL (4.0-10.0)
[2019-11-24 05:34] LABS: HEMOGLOBIN 9.7 g/dl (13.5-17.5); PLATELET COUNT, AUTOMATED 58 10^3/uL (150-450)
[2019-11-24 05:40] LABS: LYMPHOCYTES 15 % (16-44); METAMYELOCYTES 7 % (0-0); MONOCYTES 10 % (0-5); MYELOCYTES 3 % (0-0); NEUTROPHILS 61 % (28-66); PLATELET ESTIMATE MARKED DECREASE (NORMAL)
[2019-11-24 05:41] LABS: ANISOCYTOSIS 1+; POLYCHROMASIA 1+
[2019-11-24 05:45] LABS: BLOOD UREA NITROGEN 7 MG/DL (7-18); CALCIUM LEVEL 6.8 MG/DL (8.8-10.2); CARBON DIOXIDE LEVEL 25 MEQ/L (21-32); CHLORIDE LEVEL 105 MEQ/L (98-107); CREATININE FOR GFR 0.68 MG/DL (0.70-1.30); GLOMERULAR FILTRATION RATE > 60.0 (>42); GLUCOSE, FASTING 100 MG/DL (70-100); POTASSIUM SERUM 4.2 MEQ/L (3.5-5.1); SODIUM LEVEL 136 MEQ/L (136-145)
[2019-11-24] MEDS: PIPERACILLIN/TAZOBACTAM SOD 3.375 GM in D5W MINI-BAG PLUS 50 ML IV SCH ×4 (05:58→22:16)
[2019-11-24] MEDS: SLF 3 ML SYR IV SCH ×3 (06:07→20:50)
[2019-11-24 07:07] VITALS: BP 148/88
[2019-11-24] MEDS: ACETAMINOPHEN 500 MG TAB PO SCH ×3 (08:05→20:49)
[2019-11-24] MEDS: ANALGESIC BALM CRM 120 GM TOP SCH ×4 (08:05→22:16)
[2019-11-24 12:00] VITALS: BP 145/72
[2019-11-24 16:49] VITALS: BP 139/83
--- NOTE | 2019-11-24 17:15 | IPNPDOC ---
Text Note Date of Service The patient was seen on 11/24/19. NOTE SUBJECTIVE Mr. Moore was admitted for acute on chronic anemia associated with his chemotherapy. The patient has metastatic prostate adenocarcinoma. He has done well after receiving transfusion of packed red blood cells. He reports he has not had any difficulty with any prior chemotherapy treatments, but states he was not closely followed with this one. He is currently feeling quite well and energetic. OBJECTIVE: Please see vital signs below Physical exam: GENERAL: The patient is fully awake, alert and conversant; sitting up in a chair HENT: Neck is supple with no adenopathy or thyromegaly, oral mucosa is moist, he has moderately poor dentition, he does not demonstrate any mucosal pallor CV: Regular rate and rhythm, no appreciable murmur. RESP: Clear to auscultation, no rhonchi, rales or wheezes. ABD: Soft, nontender, nondistended. EXT: No peripheral edema, full range of motion and strength to all extremities, pedal pulses palpable NEURO: No focal neuromotor or sensory deficits, he is fully independently ambulatory Please see laboratory data below ASSESSMENT/PLAN: 1. Acute on chronic anemia--this apparently appears due to chemotherapy-induced myelosuppression; patient had been receiving chemotherapy for his underlying prostate adenocarcinoma with bone metastases. He has received 4 units of packed red blood cells; hemoglobin today is 9.7. Patient has had thrombocytopenia as well; platelet count today is adequate at 58. If his values continues stable he may be able to be discharged to home tomorrow. 2. Fever--patient is immunocompromised given the fact that he has prostate cancer. Patient undergoing chemotherapy, but he does not have neutropenia. He has been afebrile for greater than 24 hours. Cultures are negative to date. MRSA screen is negative. Vancomycin has been stopped but patient has remained on Zosyn. Lactic acid had been elevated at 2.8, but then came down to 1.5 and concerns for acute sepsis are greatly decreased. VS,Fishbone, I+O VS, Fishbone, I+O Laboratory Tests 11/24/19 04:51 Vital Signs Date Time Temp Pulse Resp B/P (MAP) Pulse Ox O2 Delivery O2 Flow Rate FiO2 11/24/19 16:49 97.3 57 18 139/83 (101) 93 Room Air I&O- Last 24 Hours up to 6 AM 11/24/19 06:00 Intake Total 2260 ml Output Total 600 ml Balance 1660 ml RASHI CUNNINGHAM MD Nov 24, 2019 17:15
[2019-11-24 22:00] VITALS: BP 127/70
[2019-11-25] MEDS: SLF 3 ML SYR IV SCH ×3 (05:30→21:12)
[2019-11-25] MEDS: PIPERACILLIN/TAZOBACTAM SOD 3.375 GM in D5W MINI-BAG PLUS 50 ML IV SCH ×4 (05:30→22:56)
[2019-11-25] MEDS ORDERED: IBUPROFEN 200MG TAB PO STA (05:58)
[2019-11-25 06:00] VITALS: BP 126/78
[2019-11-25 06:23] LABS: HEMOGLOBIN 9.4 g/dl (13.5-17.5); MEAN CORPUSCULAR HEMOGLOBIN 28.9 pg (27.0-33.0); MEAN CORPUSCULAR HGB CONC 31.3 g/dl (32.0-36.5); MEAN CORPUSCULAR VOLUME 92.3 fl (80.0-96.0); RED BLOOD COUNT 3.25 10^6/uL (4.30-6.10); WHITE BLOOD COUNT 6.7 10^3/uL (4.0-10.0)
[2019-11-25 06:25] LABS: PLATELET COUNT, AUTOMATED 59 10^3/uL (150-450)
[2019-11-25 06:44] LABS: BLOOD UREA NITROGEN 7 MG/DL (7-18); CALCIUM LEVEL 6.2 MG/DL (8.8-10.2); CARBON DIOXIDE LEVEL 24 MEQ/L (21-32); CHLORIDE LEVEL 103 MEQ/L (98-107); CREATININE FOR GFR 0.63 MG/DL (0.70-1.30); GLOMERULAR FILTRATION RATE > 60.0 (>42); GLUCOSE, FASTING 133 MG/DL (70-100); POTASSIUM SERUM 3.5 MEQ/L (3.5-5.1); SODIUM LEVEL 136 MEQ/L (136-145)
[2019-11-25 07:10] LABS: ATYPICAL LYMPH 1 % (0-5); BASOPHILS 1 % (0-1); EOSINOPHILS 4 % (0-3); LYMPHOCYTES 19 % (16-44); METAMYELOCYTES 4 % (0-0); MONOCYTES 5 % (0-5); MYELOCYTES 8 % (0-0); NEUTROPHILS 55 % (28-66)
[2019-11-25 07:11] LABS: PLATELET ESTIMATE DECREASED (NORMAL)
[2019-11-25 07:12] LABS: ANISOCYTOSIS 1+
[2019-11-25] MEDS: ACETAMINOPHEN 500 MG TAB PO SCH ×3 (08:09→21:12)
[2019-11-25] MEDS: ANALGESIC BALM CRM 120 GM TOP SCH ×4 (08:10→21:00)
[2019-11-25 14:00] VITALS: BP 113/72
--- NOTE | 2019-11-25 14:13 | REP ---
AP PORTABLE CHEST: 11/25/2019. COMPARISON: 11/22/2019 AP, 09/05/2019 CT. CLINICAL HISTORY: Fever on antibiotics. FINDINGS: Slight elevation of the right diaphragm, greater than previous. The left lung shows consolidative opacity in the mid and lower lung zone with air bronchograms representing pneumonia. This is a significant change from 3 days ago. No definite effusion. Heart and mediastinal contours are unchanged. The aorta is tortuous without aneurysm. Airway intact. There is diffuse sclerotic appearance to skeletal structures, consistent with sclerotic bony metastasis from his known prostate carcinoma. IMPRESSION: 1. Interval development of significant pneumonia left lower lung zone with air bronchograms. No definite effusion. 2. Right lung without definite infiltrate. Slight elevation of the right diaphragm has increased since 11/22/2019. 3. Diffuse sclerotic metastases throughout his skeletal system from his known prostate carcinoma. Electronically Signed by Rian Canas MD 11/25/2019 07:01 P
--- NOTE | 2019-11-25 16:59 | IPNPDOC ---
Text Note Date of Service The patient was seen on 11/25/19. NOTE SUBJECTIVE Mr. Moore was admitted for acute on chronic anemia associated with his chemotherapy. The patient has metastatic prostate adenocarcinoma. He has done well after receiving transfusion of packed red blood cells. He reports he has not had any difficulty with any prior chemotherapy treatments, but states he was not closely followed with this one. OBJECTIVE: Please see vital signs below, Mr. Moore has unfortunately been febrile overnight to a MAXIMUM TEMPERATURE of 102.5 Physical exam: GENERAL: Patient is noted to be febrile, lethargic and difficult to arouse i nitially. Upon recheck he is awake and conversant. HENT: Neck is supple with no adenopathy or thyromegaly, oral mucosa is moist, he has moderately poor dentition, he does not demonstrate any mucosal pallor CV: Regular rate and rhythm, no appreciable murmur. RESP: Clear to auscultation, no rhonchi, rales or wheezes. ABD: Soft, nontender, nondistended. EXT: No peripheral edema, full range of motion and strength to all extremities, pedal pulses palpable NEURO: No focal neuromotor or sensory deficits, he is fully independently ambulatory Review of laboratory data does not reveal any remarkable changes. White blood cell count is 6.7, and he does not have any neutropenia. Platelet count is adequate at 59, hemoglobin is 9.4. ASSESSMENT/PLAN: 1. Acute on chronic anemia--this apparently appears due to chemotherapy-induced myelosuppression; patient had been receiving chemotherapy for his underlying prostate adenocarcinoma with bone metastases. He has received 4 units of packed red blood cells; hemoglobin today is 9.4. Patient has had thrombocytopenia as well; platelet count today is adequate at 59. 2. Fever--patient is immunocompromised given the fact that he has prostate [facility] er and is undergoing chemotherapy, but he does not have neutropenia. He has again unfortunately been febrile. Cultures remain negative to date. MRSA screen is negative. Vancomycin had been stopped but patient has remained on Zosyn. Lactic acid had been elevated at 2.8, but then came down to 1.5. Repeat culture survey has been obtained and he will be monitored again overnight. VS,Fishbone, I+O VS, Fishbone, I+O Laboratory Tests 11/25/19 06:05 Vital Signs Date Time Temp Pulse Resp B/P (MAP) Pulse Ox O2 Delivery O2 Flow Rate FiO2 11/25/19 14:00 98.5 79 18 113/72 (86) 96 Room Air I&O- Last 24 Hours up to 6 AM 11/25/19 06:00 Intake Total 1320 ml Output Total 1525 ml Balance -205 ml RASHI CUNNINGHAM MD Nov 25, 2019 16:59
[2019-11-25 22:00] VITALS: BP 140/82
[2019-11-25] MEDS ORDERED: IBUPROFEN 200MG TAB PO ONE (22:45)
[2019-11-26] MEDS: SLF 3 ML SYR IV SCH ×3 (05:20→22:14)
[2019-11-26] MEDS: PIPERACILLIN/TAZOBACTAM SOD 3.375 GM in D5W MINI-BAG PLUS 50 ML IV SCH ×4 (05:20→22:13)
[2019-11-26 06:00] VITALS: BP 117/73
[2019-11-26 06:37] LABS: HEMATOCRIT 29.9 % (42.0-52.0); HEMOGLOBIN 9.3 g/dl (13.5-17.5); MEAN CORPUSCULAR HEMOGLOBIN 28.9 pg (27.0-33.0); MEAN CORPUSCULAR HGB CONC 31.1 g/dl (32.0-36.5); MEAN CORPUSCULAR VOLUME 92.9 fl (80.0-96.0); RED BLOOD COUNT 3.22 10^6/uL (4.30-6.10)
[2019-11-26 06:40] LABS: PLATELET COUNT, AUTOMATED 56 10^3/uL (150-450)
[2019-11-26 07:08] LABS: BLOOD UREA NITROGEN 9 MG/DL (7-18); CALCIUM LEVEL 7.1 MG/DL (8.8-10.2); CARBON DIOXIDE LEVEL 25 MEQ/L (21-32); CHLORIDE LEVEL 102 MEQ/L (98-107); CREATININE FOR GFR 0.54 MG/DL (0.70-1.30); GLOMERULAR FILTRATION RATE > 60.0 (>42); GLUCOSE, FASTING 98 MG/DL (70-100); POTASSIUM SERUM 3.5 MEQ/L (3.5-5.1); SODIUM LEVEL 134 MEQ/L (136-145)
[2019-11-26 07:13] LABS: ANISOCYTOSIS 1+; BASOPHILS 2 % (0-1); EOSINOPHILS 2 % (0-3); LYMPHOCYTES 20 % (16-44); METAMYELOCYTES 4 % (0-0); MONOCYTES 4 % (0-5); MYELOCYTES 7 % (0-0); NEUTROPHILS 59 % (28-66); PLATELET ESTIMATE MARKED DECREASE (NORMAL)
[2019-11-26 08:18] VITALS: BP 141/86
[2019-11-26] MEDS: ACETAMINOPHEN 500 MG TAB PO SCH ×3 (08:18→20:12)
[2019-11-26] MEDS: ANALGESIC BALM CRM 120 GM TOP SCH ×4 (08:18→20:12)
[2019-11-26] MEDS: ONDANSETRON 4MG/2ML VIAL IV PRN (08:27)
[2019-11-26] MEDS: MOM 30ML SUSPENSION UDC PO PRN ×2 (11:42→15:51)
[2019-11-26 14:00] VITALS: BP 124/77
--- NOTE | 2019-11-26 18:11 | IPNPDOC ---
Text Note Date of Service The patient was seen on 11/26/19. NOTE UBJECTIVE Mr. Moore was admitted for acute on chronic anemia associated with his chemotherapy. The patient has metastatic prostate adenocarcinoma. He has done well after receiving transfusion of packed red blood cells. He reports he has not had any difficulty with any prior chemotherapy treatments. He has unfortunately continued to have fever episodes. OBJECTIVE: Please see vital signs below, Mr. Moore has unfortunately been febrile overnight to a MAXIMUM TEMPERATURE of 102.8 overnight Physical exam: GENERAL: Patient is noted to be febrile, lethargic and difficult to arouse initially. Upon recheck he is awake and conversant. HENT: Neck is supple with no adenopathy or thyromegaly, oral mucosa is moist, he has moderately poor dentition, he does not demonstrate any mucosal pallor CV: Regular rate and rhythm, no appreciable murmur. RESP: Clear to auscultation, no rhonchi, rales or wheezes. ABD: Soft, nontender, nondistended. EXT: No peripheral edema, full range of motion and strength to all extremities, pedal pulses palpable NEURO: No focal neuromotor or sensory deficits, he is fully independently ambulatory PSYCH: Becoming a bit depressed about not being able to go home yet Review of laboratory data does not reveal any remarkable changes. White blood cell count is 6.7, and he does not have any neutropenia. Platelet count is adequate at 59, hemoglobin is 9.4. ASSESSMENT/PLAN: 1. Acute on chronic anemia--this apparently appears due to chemotherapy-induced myelosuppression; patient had been receiving chemotherapy for his underlying prostate adenocarcinoma with bone metastases. He has received 4 units of packed red blood cells; hemoglobin today is 9.3. Patient has had thrombocytopenia as well; platelet count is adequate at 59. 2. Fever--patient is immunocompromised given the fact that he has prostate cancer and is undergoing chemotherapy, but he does not have neutropenia. He has again unfortunately been febrile. Cultures remain negative to date. MRSA screen is negative. Vancomycin had been stopped but patient has remained on Zosyn. Lactic acid had been elevated at 2.8, but then came down to 1.5. Repeat culture survey has been obtained and remains negative for growth to date. VS,Fishbone, I+O VS, Fishbone, I+O Laboratory Tests 11/26/19 05:57 Vital Signs Date Time Temp Pulse Resp B/P (MAP) Pulse Ox O2 Delivery O2 Flow Rate FiO2 11/26/19 16:00 101.6 11/26/19 14:00 102 19 124/77 (93) 97 Room Air I&O- Last 24 Hours up to 6 AM 11/26/19 06:00 Intake Total 1270 ml Output Total 1700 ml Balance -430 ml RASHI CUNNINGHAM MD Nov 26, 2019 18:11
[2019-11-26 22:00] VITALS: BP 127/76
[2019-11-27] MEDS: PIPERACILLIN/TAZOBACTAM SOD 3.375 GM in D5W MINI-BAG PLUS 50 ML IV SCH ×4 (04:59→22:27)
[2019-11-27] MEDS: SLF 3 ML SYR IV SCH ×3 (04:59→22:00)
[2019-11-27 06:00] VITALS: BP 130/58
[2019-11-27 06:13] LABS: HEMATOCRIT 29.1 % (42.0-52.0); HEMOGLOBIN 9.2 g/dl (13.5-17.5); MEAN CORPUSCULAR HEMOGLOBIN 29.3 pg (27.0-33.0); MEAN CORPUSCULAR HGB CONC 31.6 g/dl (32.0-36.5); MEAN CORPUSCULAR VOLUME 92.7 fl (80.0-96.0); RED BLOOD COUNT 3.14 10^6/uL (4.30-6.10)
[2019-11-27 06:17] LABS: PLATELET COUNT, AUTOMATED 64 10^3/uL (150-450)
[2019-11-27 06:18] LABS: BLOOD UREA NITROGEN 8 MG/DL (7-18); CALCIUM LEVEL 7.7 MG/DL (8.8-10.2); CARBON DIOXIDE LEVEL 24 MEQ/L (21-32); CHLORIDE LEVEL 99 MEQ/L (98-107); CREATININE FOR GFR 0.64 MG/DL (0.70-1.30); GLOMERULAR FILTRATION RATE > 60.0 (>42); GLUCOSE, FASTING 107 MG/DL (70-100); SODIUM LEVEL 132 MEQ/L (136-145)
[2019-11-27 06:40] LABS: BASOPHILS 1 % (0-1); EOSINOPHILS 2 % (0-3); LYMPHOCYTES 23 % (16-44); METAMYELOCYTES 5 % (0-0); MONOCYTES 8 % (0-5); MYELOCYTES 7 % (0-0); NEUTROPHILS 47 % (28-66); PLATELET ESTIMATE DECREASED (NORMAL)
[2019-11-27] MEDS: ANALGESIC BALM CRM 120 GM TOP SCH ×4 (09:00→20:27)
[2019-11-27] MEDS: ACETAMINOPHEN 500 MG TAB PO SCH ×3 (09:47→20:27)
[2019-11-27] MEDS: DOXYCYCLINE HYCLATE 100MG TABLET PO SCH ×2 (11:44→20:27)
[2019-11-27] MEDS ORDERED: KETOROLAC 30 MG/ML 1ML VIAL IV ONE (11:45)
[2019-11-27 14:00] VITALS: BP 111/63
--- NOTE | 2019-11-27 14:40 | IPNPDOC ---
Date Seen The patient was seen on 11/27/19. Progress Note SUBJECTIVE Fevers 98.7-102.2F over past 24 hrs, diaphoretic this AM despite Zosyn since 11/22/19. MRSA neg, all other cx neg. Ordered sputum today, on RA without cough, shortness of breath. Progressive PNA from CXR on 11/25/19. H/H slightly lower but no signs of acute bleeding. Discussed case with ID, added tick borne testing. Denies cough, n/v, diarrhea. OBJECTIVE: VITAL SIGNS: Please see below Physical exam: GENERAL: Lethargic, diaphoretic elderly male. In no acute distress, AAOx 3 HENT: Neck is supple with no adenopathy or thyromegaly, oral mucosa is moist, he has moderately poor dentition, he does not demonstrate any mucosal pallor CV: Regular rate and rhythm, no appreciable murmur. RESP: Clear to auscultation, no rhonchi, rales or wheezes. ABD: Soft, nontender, nondistended. EXT: No peripheral edema, full range of motion and strength to all extremities, pedal pulses palpable NEURO: No focal neuromotor or sensory deficits, he is fully independently ambulatory PSYCH: Depressed mood, normal affect LABORATORY: Please see below MICROBIOLOGY: Blood cultures x 2 sets 11/22/19: NG to date Blood culture x 1 set 11/25/19: NG to date UA 11/22/19: Neg UA 11/25/19: Neg Resp panel: neg Sputum culture ordered IMAGING: CXR 11/25/19 1. Interval development of significant pneumonia left lower lung zone with air bronchograms. No definite effusion. 2. Right lung without definite infiltrate. Slight elevation of the right diaphragm has increased since 11/22/2019. 3. Diffuse sclerotic metastases throughout his skeletal system from his known prostate carcinoma. 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 PLAN: 1. LLL PNA. -Immunocompromised, WBC wnl; however, fevers up to 102.2 F -Received 2 doses of Vancomycin on 11/21 and 11/22 before MRSA came back neg -Microbiology above -Ordered sputum cx today, f/u results -C/w zosyn (Day 6), PO doxycycline (Day1) 2. Fevers -Could be 2/2 to LLL PNA vs. underlying malignancy vs. other unidentified infection at present time; however, still spiking temp up to 102.2 F on zosyn. -Repeat CXR 11/25/19 showed progressive PNA, other microbiology above with sputum culture not able to be provided yet -Discussed case with Dr. Francisco. F/u tick-borne disease testing, hx of lyme: lyme, ehrlichiosis, babesiosis -Started on doxycycline -F/u echocardiogram -ID consulted 3. Acute on chronic anemia -Cannot r/o 2/2 to ? myelodysplastic process with thrombocytopenia vs. metastatic CA vs. chemotherapy -Occult blood neg -S/p 4 units PRBC since admission - H/H slightly lower today at 9.2/29.1. -Will need o/p BM biopsy according to last heme/onc note -F/u daily CBC. Transfuse PRN when symptomatic or if Hgb <7-8 4. Prostate cancer with bone metastasis -Currently undergoing chemotherapy without neutropenia. -Followed last with Dr. Lennon 11/22/19, please defer to note 5. Acute thrombocytopenia -r/o 2/2 to infection vs. myelodysplastic cause -In need of BM biopsy according to heme/onc notes -F/u daily CBC. 6. Hyponatremia, acute -Febrile, poor PO intake -Started on IVFs. -F/u AM labs. 7. DVT px. -SCD, teds DISPOSITION: Currently inpatient status. Plan is discharge home when medically improved. VS, I&O, 24H, Fishbone Vital Signs/I&O Vital Signs Date Time Temp Pulse Resp B/P (MAP) Pulse Ox O2 Delivery O2 Flow Rate FiO2 11/27/19 11:27 102.1 11/27/19 06:00 68 20 130/58 (82) 96 11/26/19 22:00 Room Air I&O- Last 24 Hours up to 6 AM 11/27/19 05:59 Intake Total 1860 ml Output Total 1050 ml Balance 810 ml Laboratory Data 24H LABS Laboratory Tests 2 11/27/19 05:26: 11/27/19 05:29: Immature Granulocyte % (Auto) , Neutrophils (%) (Auto) , Nucleated Red Blood Cells % (auto) 1.2H, Neutrophils 47, Band Neutrophils 7, Lymphocytes (Manual) 23, Monocytes (Manual) 8H, Eosinophils (Manual) 2, Basophils (Manual) 1, M etamyelocytes 5H, Myelocytes 7H, Red Blood Cell Morphology NORMAL, Platelet Estimate DECREASED, Immature Platelet Fraction 3.7, Anion Gap 9, Glomerular Filtration Rate > 60.0, Calcium Level 7.7L CBC/BMP Laboratory Tests 11/27/19 05:29 Microbiology Microbiology 11/26/19 Stool Occult Blood (RONNI) - Final, Complete 11/25/19 Blood Culture - Preliminary, Resulted No Growth after 48 hours. All Specime... 11/22/19 Respiratory Virus Panel (PCR) (RONNI) - Final, Complete 11/22/19 Blood Culture - Final, Complete NO GROWTH AFTER 5 DAYS 11/22/19 Blood Culture - Final, Complete NO GROWTH AFTER 5 DAYS Current Medications Current Medications Medications (Trade) Dose Ordered Sig/Mahi Route PRN Reason Start Time Stop Time Status Last Admin Dose Admin Acetaminophen (Tylenol Tab) 1,000 mg QHS PO 11/23/19 21:00 11/23/19 11:11 DC Acetaminophen (Tylenol Tab) 1,000 mg TID PO 11/23/19 09:00 11/27/19 09:47 Doxycycline Hyclate (Vibramycin) 100 mg BID PO 11/27/19 09:00 11/27/19 11:44 Home Med (Med Rec Complete!) ASDIRECTED XX 11/22/19 13:30 11/22/19 13:23 DC Ibuprofen (Advil) 200 mg NOW STAT PO 11/25/19 05:58 11/25/19 05:59 DC 11/25/19 06:22 Magnesium Hydroxide (Milk Of Magnesia) 30 ml Q4HP PRN PO CONSTIPATION 11/23/19 10:45 11/26/19 15:51 Menthol/Methyl Salicylate (Bengay Cream) AFFECTED RIGHT HIP QID TOP 11/23/19 13:00 11/26/19 17:39 Ondansetron HCl (ZOFRAN INJection) 4 mg Q4HP PRN IV NAUSEA OR VOMITING 11/23/19 14:30 11/26/19 08:27 Piperacillin Sod/ Tazobactam Sod 3.375 gm/Dextrose 50 ml @ 50 mls/hr Q6H IV 11/22/19 23:00 11/27/19 11:44 Senna/Docusate Sodium (Senokot S) 2 tab BIDP PRN PO CONSTIPATION 11/23/19 10:45 11/26/19 15:51 Sodium Chloride 1,000 ml @ 75 mls/hr [id number] IV 11/27/19 14:30 Sodium Chloride (Saline Lock Flush) 2 ml ASDIRECTED PRN IV SEE LABEL COMMENTS 11/23/19 16:45 Sodium Chloride (Saline Lock Flush) 2 ml SLF IV 11/23/19 22:00 11/27/19 14:14 Trazodone HCl (Desyrel) 25 mg QHSP PRN PO INSOMNIA 11/22/19 21:15 11/23/19 20:45 Vancomycin HCl 1000 mg/IV Miscellaneous Supplies 1 each/ Dextrose 270 ml @ 270 mls/hr Q12H IV 11/23/19 06:00 11/23/19 08:55 DC 11/23/19 06:42 Allergies Coded Allergies: No Known Allergies (Unverified , 08/09/18) Charisse Dimas MD Nov 27, 2019 14:40
[2019-11-27] MEDS: NS 1,000 ML IV SCH (15:12)
[2019-11-27 22:00] VITALS: BP 139/73
[2019-11-27 23:52] LABS: LDH LACTATE DEHYDROGENASE 515 U/L (87-241)
--- NOTE | 2019-11-28 00:38 | CR ---
DATE: 11/27/2019 INFECTIOUS DISEASE CONSULTATION Asked to consult by Dr. Dimas for evaluation of fever in a patient with prostate cancer metastatic to bone. HISTORY OF PRESENT ILLNESS: Mr. Moore is a pleasant 74-year-old gentleman with a history of metastatic prostate cancer to the bones who was being evaluated by oncology for followup, and the patient was complaining of severe fatigue and lack of energy. This has been going on for about a month prior to admission. He had a followup CT chest, abdomen and pelvis done in August of 2019, which showed evidence of metastatic disease to the bones with diffuse sclerotic lesions that had been worse. The patient has received chemotherapy with cabazitaxel on 09/06 and was following up with Dr. Haider. He was seen by Dr. Lennon on November 21, our new oncologist, who recommended admission due to severe anemia. He complains of severe fatigue with weakness and some shortness of breath with exertion. He had no cough, chest pain or pleurisy. He did not realize he had a fever until he came to the hospital. Today, he states he is only weak but has no other complaints. No pulmonary symptoms. No runny nose. No headache. No neck stiffness. 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 He denies any chest pain, pressure, dizziness, lightheadedness, hematemesis, rectal bleeding diarrhea, urinary symptoms. PAST MEDICAL HISTORY: Significant for prostate cancer with bone metastasis, hypertension, history of Lyme disease with Aldana's palsy and meningitis, treated with IV Rocephin in December of 2005 ALLERGIES: No known drug allergies. PAST SURGICAL HISTORY: Bilateral cataract removal, prostate biopsy in 2017. FAMILY HISTORY: Father at 93. Mother from congestive heart failure in her 60s, brother had leukemia, and a son of coronary artery disease. SOCIAL HISTORY: He lives on [facility] with his grandson who is 17 years old, and he has been there for at least a couple months since September. MEDICATIONS: - Xgeva 120 mg subcu every month - Zofran as needed for nausea - prednisone - calcium with vitamin D - He was started on Zosyn 3.375 grams every 6 hours intravenously, day #5 - doxycycline 100 mg by mouth twice a day for day #1. REVIEW OF SYSTEMS: He has no nausea, vomiting or diarrhea. No headache. No upper or lower extremity weakness. No joint pains. No rashes. Other than what is on the history of the present illness, the review of systems was negative, including pain, bone pain from metastasis. PHYSICAL EXAM: Maximum temperature (T max) 102.1 today, pulse 74, respirations 20, blood pressure 111/63, oxygen saturation (O2 sat) 96% on room air. Heart: Normal, S1, S2. No murmurs, rubs or gallops appreciated. Lungs are clear. No wheezes, rales or rhonchi, not diminished at the bases. Abdomen is soft, nontender. No hepatosplenomegaly. Back: No costovertebral angle (CVA) or lumbosacral tenderness. Extremities: No clubbing, cyanosis or edema. He has thick onychomycotic nails. Oropharynx is clear with no thrush. No lesions. Pupils equal and reactive, anicteric, mildly pale conjunctivae, no petechiae. LABORATORY DATA: White count is 9, hemoglobin 9.2, hematocrit 29.1, platelets 64. 47% neutrophils, 7% bands, 23% lymphocytes, 8% monocytes, 5% metamyelocytes and 7% myelocytes. Sodium 132, potassium 4, chloride 99, bicarbonate 24, BUN 8, creatinine 0.64, glucose 107, calcium 7.7. Urinalysis has 1 white cell and 0 red cells. Serology: MRSA PCR scan was not detected. Anaplasma, Babesia IgM, IgG, Lyme serology IgM, IgG and Ehrlichia PCR were all sent. Chest x-ray shows a new left lower lobe infiltrate done on 11/25/2019, but that was a portable x-ray. Hip x-ray: Mild degenerative changes at the right hip joint with mild joint space narrowing, diffuse sclerotic metastases. Left lower lung zone infiltrate with no infiltrates on the right lung, slight elevation of the right hemidiaphragm. IMPRESSION: Mr. Moore is a pleasant 74-year-old gentleman with a history of prostate cancer, metastatic to bone, who has had a progressive worsening anemia and now has developed thrombocytopenia, over the past month has developed generalized weakness. The patient did not realize he had a fever until hospital admission. He has been on IV Zosyn with no improvement in his fever. Other than the weakness, some dyspnea on exertion, he does not have any other symptoms to suggest pneumonia. [place] although nothing recently and no rashes, but still tick-borne illnesses are in the differential including Anaplasma, Babesia and Lyme disease. The patient has been started on doxycycline. Other possible causes of his fever would be a reactivation of Roberta-Arenas Virus (EBV), cytomegalovirus (CMV) viral infection. Less likely fever from metastatic bone cancer would also be in the differential. His bone marrow shows evidence of myelocytes and metamyelocytes, which is somewhat concerning. He had been scheduled to have a bone marrow biopsy in [place], but this is on hold at this point due to hospitalization. PLAN: Continue IV Zosyn for a total of 7 days. He is currently day #5. Doxycycline has been started at 100 mg by mouth twice a day. Lyme serology, Anaplasma, Babesia PCR are pending. Add urine Legionella antigen and pneumococcal antigen to workup. His left lower lobe pneumonia will be treated with Doxycycline to cover for atypical pathogen and Zosyn would cover for typical pathogen, and therefore, antibiotics choice are currently appropriate. I would suggest obtaining CT abdomen and chest to rule out occult infection, rule out hepatosplenomegaly or worsening malignancy. This will be ordered for tomorrow morning. BRYANNAD
[2019-11-28] MEDS ORDERED: ACETAMINOPHEN 500 MG TAB PO ONE (03:00)
[2019-11-28] MEDS: SLF 3 ML SYR IV SCH ×3 (05:10→21:14)
[2019-11-28] MEDS: PIPERACILLIN/TAZOBACTAM SOD 3.375 GM in D5W MINI-BAG PLUS 50 ML IV SCH ×4 (05:32→22:58)
[2019-11-28 06:00] VITALS: BP 132/72
[2019-11-28 06:06] LABS: HEMATOCRIT 27.5 % (42.0-52.0); HEMOGLOBIN 8.7 g/dl (13.5-17.5); MEAN CORPUSCULAR HEMOGLOBIN 29.3 pg (27.0-33.0); MEAN CORPUSCULAR HGB CONC 31.6 g/dl (32.0-36.5); MEAN CORPUSCULAR VOLUME 92.6 fl (80.0-96.0); RED BLOOD COUNT 2.97 10^6/uL (4.30-6.10); WHITE BLOOD COUNT 8.7 10^3/uL (4.0-10.0)
[2019-11-28 06:12] LABS: PLATELET COUNT, AUTOMATED 60 10^3/uL (150-450)
[2019-11-28 06:25] LABS: BLOOD UREA NITROGEN 9 MG/DL (7-18); CALCIUM LEVEL 6.7 MG/DL (8.8-10.2); CARBON DIOXIDE LEVEL 23 MEQ/L (21-32); CHLORIDE LEVEL 105 MEQ/L (98-107); CREATININE FOR GFR 0.56 MG/DL (0.70-1.30); GLOMERULAR FILTRATION RATE > 60.0 (>42); GLUCOSE, FASTING 96 MG/DL (70-100); POTASSIUM SERUM 3.9 MEQ/L (3.5-5.1); SODIUM LEVEL 137 MEQ/L (136-145)
[2019-11-28] MEDS: GASTROGRAFIN SOLUTION 30ML PO SCH ×2 (06:44→07:56)
[2019-11-28 07:48] LABS: LYMPHOCYTES 31 % (16-44); METAMYELOCYTES 3 % (0-0); MONOCYTES 9 % (0-5); MYELOCYTES 2 % (0-0); NEUTROPHILS 40 % (28-66); PLATELET ESTIMATE DECREASED (NORMAL)
[2019-11-28] MEDS: ACETAMINOPHEN 500 MG TAB PO SCH ×3 (07:56→21:14)
[2019-11-28] MEDS: NS 1,000 ML IV SCH ×2 (07:56→22:58)
[2019-11-28] MEDS: DOXYCYCLINE HYCLATE 100MG TABLET PO SCH ×2 (07:56→21:14)
[2019-11-28] MEDS: ANALGESIC BALM CRM 120 GM TOP SCH ×4 (07:57→21:00)
[2019-11-28] MEDS ORDERED: CALCIUM GLUCONATE 1,000 MG in D5W MINI-BAG PLUS 100 ML IV ONE (09:00)
[2019-11-28] MEDS ORDERED: ISOVUE-370 76% 100ML VIAL As Ordered ONE (09:07)
--- NOTE | 2019-11-28 12:10 | REP ---
REASON: Followup. COMPARISON: The latest prior 09/05/2019 an older exam 10/23/2008. Contrast 100 mL Isovue 370. The mediastinum and pulmonary eron are unchanged. There is no mass or adenopathy. There are no pleural or pericardial effusions. The imaged osseous structures are unchanged. There is widespread axial and appendicular skeletal metastasis. Evaluation of the lung shah shows a new somewhat triangular shaped pleural based density in the superior segment of the right lower lobe which measures approximately 3.1 x 1.2 cm but has stranding to the right hilum. There is right middle lobe nodule which is unchanged. There are no additional abnormal findings in the lung shah. IMPRESSION: New abnormal opacity in the superior segment of the right lower lobe as scribed above likely subsegmental atelectatic change, however, I would recommend a short internal 3-month followup to ensure resolution. Note is again made of diffuse widespread skeletal metastasis. Electronically Signed by Hung Hermosillo DO 11/28/2019 12:57 P
[2019-11-28] MEDS: LACTOBACILLUS ACIDOPHILUS CAP (BACID) PO SCH ×2 (12:45→18:25)
[2019-11-28 14:44] VITALS: BP 132/92
--- NOTE | 2019-11-28 15:58 | REP ---
REASON: Prostate cancer and pyrexia. COMPARISON: 09/05/2019. Contrast 100 mL Isovue 370. There is no significant change in the appearance of the liver, gallbladder, spleen, pancreas, adrenal glands, and kidneys. The gallbladder has increased slightly in size from the prior exam but is otherwise unchanged and within normal limits. There is no change in the appearance of the ventral or left inguinal hernias. There is no significant change in the appearance of the bowel loops or their mesenteries. There is no intestinal obstruction. No free fluid or free air has developed. There is no significant change in the appearance of the abdominal aorta or para-aortic regions. No intra-abdominal or intrapelvic mass or adenopathy has developed. There is no change in the appearance of the abdominal aorta or para-aortic regions. Bone window technique throughout the examination again shows diffuse axial and appendicular skeletal blastic metastasis. IMPRESSION: No significant change compared to the prior exam of 09/05/2019 with findings as described above. Electronically Signed by Hung Hermosillo DO 11/28/2019 04:11 P
--- NOTE | 2019-11-28 18:24 | IPNPDOC ---
Date Seen The patient was seen on 11/28/19. Progress Note SUBJECTIVE Fevers as high as 103.2F/24 hrs. ID evaluated and following. Multiple cultures still pending, patient has been unable to produce sputum cx. Poor PO intake today, refused breakfast and lunch. H/H dropped lower today, no signs of bleeding. Consulting heme/onc to evaluate. On IVFs. Denies shortness of breath, chest pain, cough, n/v, diarrhea. OBJECTIVE: VITAL SIGNS: Please see below Physical exam: GENERAL: Lethargic elderly male. In no acute distress, AAOx 3 HENT: Neck is supple with no adenopathy or thyromegaly, oral mucosa is moist, poor dentition CV: Regular rate and rhythm, no appreciable murmur. RESP: Clear to auscultation, no rhonchi, rales or wheezes. ABD: Soft, nontender, nondistended. EXT: No peripheral edema, full range of motion and strength to all extremities, pedal pulses palpable NEURO: No focal neuromotor or sensory deficits, he is fully independently ambu latory PSYCH: Depressed mood, normal affect LABORATORY: Please see below MICROBIOLOGY: Blood cultures x 2 sets 11/22/19: NG to date Blood culture x 1 set 11/25/19: NG to date UA 11/22/19: Neg UA 11/25/19: Neg Resp panel: neg Sputum culture: unable to be provided thus far Pending: tick borne disease testing, urine strep pneumoniae, urine legionella IMAGING: CXR 11/25/19 1. Interval development of significant pneumonia left lower lung zone with air bronchograms. No definite effusion. 2. Right lung without definite infiltrate. Slight elevation of the right diaphragm has increased since 11/22/2019. 3. Diffuse sclerotic metastases throughout his skeletal system from his known prostate carcinoma. 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 PLAN: 1. LLL PNA. -Immunocompromised, WBC wnl. Fevers as high as 103.2F over the past 24 hours even after expanded abx regimen. -Received 2 doses of Vancomycin on 11/21 and 11/22 before MRSA came back neg -Microbiology above, many tests pending -Ordered sputum cx but unable to be provided thus far -C/w zosyn (Day 7), PO doxycycline (Day 2) -ID consulted 2. Fevers -Could be 2/2 to LLL PNA vs. other unidentified infection at present time; however, still spiking temp -Repeat CXR 11/25/19 showed progressive PNA, other microbiology above with sputum culture not able to be provided yet -Discussed case with Dr. Francisco. F/u tick-borne disease testing, hx of lyme: lyme, ehrlichiosis, babesiosis , urine studies -C/w zosyn (Day 7) and doxycycline (Day 2) -F/u echocardiogram -ID following 3. Acute on chronic anemia, r/o hemolytic process with increased LDH. -Cannot r/o 2/2 to ? myelodysplastic process with thrombocytopenia vs. metastatic CA vs. chemotherapy -Occult blood neg -S/p 4 units PRBC since admission - H/H slightly even lower today - Discussed case with Dr. Max (heme/onc) who will come by and see today. 4. Prostate cancer with bone metastasis -Currently undergoing chemotherapy without neutropenia. -Followed last with Dr. Lennon 11/22/19, please defer to note 5. Acute thrombocytopenia -r/o 2/2 to infection vs. myelodysplastic cause -In need of BM biopsy according to heme/onc notes -F/u daily CBC, heme/onc recs 6. Hyponatremia, acute- resolved and likely 2/2 to dehydration -Febrile, poor PO intake -C/w IVFs at 75 cc/hr -F/u AM labs. 7. DVT px. -SCD, teds DISPOSITION: Currently inpatient status. Plan is discharge home when medically improved. VS, I&O, 24H, Fishbone Vital Signs/I&O Vital Signs Date Time Temp Pulse Resp B/P (MAP) Pulse Ox O2 Delivery O2 Flow Rate FiO2 11/28/19 16:42 101.6 11/28/19 14:44 98 18 132/92 (105) 99 Room Air I&O- Last 24 Hours up to 6 AM 11/28/19 06:00 Intake Total 1205 ml Output Total 950 ml Balance 255 ml Laboratory Data 24H LABS Laboratory Tests 2 11/27/19 22:12: 11/28/19 05:33: Immature Granulocyte % (Auto) , Neutrophils (%) (Auto) , Reticulocyte # (auto) 30.6, Nucleated Red Blood Cells % (auto) 0.9H, Neutrophils 40, Band Neutrophils 15H, Lymphocytes (Manual) 31, Monocytes (Manual) 9H, Metamyelocytes 3H, Myelocytes 2H, Red Blood Cell Morphology NORMAL, Platelet Estimate DECREASED, Immature Platelet Fraction 3.6, Percent Reticulocyte Count 1.0, Reticulocyte Hemoglobin Equivalent 29.3, Anion Gap 9, Glomerular Filtration Rate > 60.0, Calcium Level 6.7L CBC/BMP Laboratory Tests 11/28/19 05:33 Microbiology Microbiology 11/26/19 Stool Occult Blood (RONNI) - Final, Complete 11/25/19 Blood Culture - Preliminary, Resulted No Growth after 72 hours. All specime... 11/22/19 Respiratory Virus Panel (PCR) (RONNI) - Final, Complete 11/22/19 Blood Culture - Final, Complete NO GROWTH AFTER 5 DAYS 11/22/19 Blood Culture - Final, Complete NO GROWTH AFTER 5 DAYS Current Medications Current Medications Medications (Trade) Dose Ordered Sig/Mahi Route PRN Reason Start Time Stop Time Status Last Admin Dose Admin Acetaminophen (Tylenol Tab) 1,000 mg QHS PO 11/23/19 21:00 11/23/19 11:11 DC Acetaminophen (Tylenol Tab) 1,000 mg TID PO 11/23/19 09:00 11/28/19 15:07 Diatrizoate Meglum/ Diatrizoate Sod (Gastrografin) 10 ml Q30M PO 11/28/19 07:00 11/28/19 07:31 DC 11/28/19 07:56 Doxycycline Hyclate (Vibramycin) 100 mg BID PO 11/27/19 09:00 11/28/19 07:56 Home Med (Med Rec Complete!) ASDIRECTED XX 11/22/19 13:30 11/22/19 13:23 DC Ibuprofen (Advil) 200 mg NOW STAT PO 11/25/19 05:58 11/25/19 05:59 DC 11/25/19 06:22 Lactobacillus Acidophilus (Bacid) 1 ea BIDWM PO 11/28/19 12:30 11/28/19 12:45 Magnesium Hydroxide (Milk Of Magnesia) 30 ml Q4HP PRN PO CONSTIPATION 11/23/19 10:45 11/26/19 15:51 Menthol/Methyl Salicylate (Bengay Cream) AFFECTED RIGHT HIP QID TOP 11/23/19 13:00 11/26/19 17:39 Ondansetron HCl (ZOFRAN INJection) 4 mg Q4HP PRN IV NAUSEA OR VOMITING 11/23/19 14:30 11/26/19 08:27 Piperacillin Sod/ Tazobactam Sod 3.375 gm/Dextrose 50 ml @ 50 mls/hr Q6H IV 11/22/19 23:00 11/28/19 17:05 Senna/Docusate Sodium (Senokot S) 2 tab BIDP PRN PO CONSTIPATION 11/23/19 10:45 11/26/19 15:51 Sodium Chloride 1,000 ml @ 75 mls/hr [id number] IV 11/27/19 14:30 11/28/19 07:56 Sodium Chloride (Saline Lock Flush) 2 ml ASDIRECTED PRN IV SEE LABEL COMMENTS 11/23/19 16:45 Sodium Chloride (Saline Lock Flush) 2 ml SLF IV 11/23/19 22:00 11/27/19 14:14 Trazodone HCl (Desyrel) 25 mg QHSP PRN PO INSOMNIA 11/22/19 21:15 11/23/19 20:45 Vancomycin HCl 1000 mg/IV Miscellaneous Supplies 1 each/ Dextrose 270 ml @ 270 mls/hr Q12H IV 11/23/19 06:00 11/23/19 08:55 DC 11/23/19 06:42 Allergies Coded Allergies: No Known Allergies (Unverified , 08/09/18) Charisse Dimas MD Nov 28, 2019 18:24
[2019-11-28] MEDS: ONDANSETRON 4MG/2ML VIAL IV PRN (18:25)
--- NOTE | 2019-11-28 19:53 | CR.PDOC ---
General Date of Consultation: Nov 28, 2019 Consultation REASON FOR CONSULTATION/CHIEF COMPLAINT:Prostate cancer known to you . HISTORY OF PRESENT ILLNESS: [ This is a 74 year old man . He has known history of castrate resistant prostate cancer. He has known extensive bone involvement. He has been treated in the past with [facility]. He was on androgen deportation therapy. After failing these therapies he was started on chemotherapy. He is now admitted with anemia, recurrent fever and abnormal chest Xray that suggested a left Lower lobe pneumonia. ALLERGIES: Please see below. HOME MEDICATIONS: Please see below. PAST MEDICAL HISTORY: 1. prostate cancer ]. 2. [cataracts ]. PAST SURGICAL HISTORY: 1. 2. FAMILY HISTORY: Father: Mother: Siblings: Children: Hereditary Diseases: Unexpected deaths due to medical reasons: SOCIAL HISTORY: Marital status and/or living arrangements: Children: Employment: Tobacco use: ETOH: Illicit drug use: IV drug use: Other relevant social factors: REVIEW OF SYSTEMS: CONSTITUTIONAL: [general weakness ]. HEENT: [no headaches ]. CARDIOVASCULAR: [ no chest pain , no palpitations ]. RESPIRATORY: [no dyspnea , no cough . GENITOURINARY: . MUSCULOSKELETAL: [ he has been having leg cramps difficulty walking . GASTROINTESTINAL: no diarrhea , no abdomen pain . SKIN: . NEUROLOGICAL: . PSYCHIATRIC: . ENDOCRINE: . HEMATOLOGIC/LYMPHATIC: . ALLERGIC/IMMUNOLOGIC: . PHYSICAL EXAMINATION: VITAL SIGNS: Please see below. GENERAL APPEARANCE: [ Awake alert no distress ]. HEENT: [normal cephalic , eye ; EOMI , facial symmetry ]. RESPIRATORY: [ Bilateral breath sounds , no wheeze no rale s]. CARDIOVASCULAR: regular rate ]. ABDOMEN: [ soft ]. EXTREMITIES: [ npo pedal edema ]. NEUROLOGICAL: [facial smeary , EOMI , normal hearing , moving upper and lower extremities , normal sense of touch . PSYCHIATRIC: . LABORATORY DATA: Please see below. ASSESSMENT/PLAN: 1. [ Prostate cancer ]. 2. [ fever ]. 3. Pneumonia 4,.anemia Plan; Check haptoglobin and reticulocyte count to assess for hemolysis. Check his testosterone level follow up on Infectious disease evaluation for infection. serial CBC, Transfuse red cells if hemoglobin is less than 7-grams Check a Odette test to see if he has developed antibodies after blood transfusion. 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 Thank you Vital Signs/I&O Vital Signs Date Time Temp Pulse Resp B/P (MAP) Pulse Ox O2 Delivery O2 Flow Rate FiO2 11/28/19 18:35 100.5 11/28/19 14:44 98 18 132/92 (105) 99 Room Air I&O- Last 24 Hours up to 6 AM 11/28/19 06:00 Intake Total 1205 ml Output Total 950 ml Balance 255 ml Laboratory Data Labs 24H Laboratory Tests 2 11/27/19 22:12: 11/28/19 05:33: Immature Granulocyte % (Auto) , Neutrophils (%) (Auto) , Reticulocyte # (auto) 30.6, Nucleated Red Blood Cells % (auto) 0.9H, Neutrophils 40, Band Neutrophils 15H, Lymphocytes (Manual) 31, Monocytes (Manual) 9H, Metamyelocytes 3H, Myelocytes 2H, Red Blood Cell Morphology NORMAL, Platelet Estimate DECREASED, Immature Platelet Fraction 3.6, Percent Reticulocyte Count 1.0, Reticulocyte Hemoglobin Equivalent 29.3, Anion Gap 9, Glomerular Filtration Rate > 60.0, Calc ium Level 6.7L CBC/BMP Laboratory Tests 11/28/19 05:33 Microbiology Microbiology 11/26/19 Stool Occult Blood (RONNI) - Final, Complete 11/25/19 Blood Culture - Preliminary, Resulted No Growth after 72 hours. All specime... 11/22/19 Respiratory Virus Panel (PCR) (RONNI) - Final, Complete 11/22/19 Blood Culture - Final, Complete NO GROWTH AFTER 5 DAYS 11/22/19 Blood Culture - Final, Complete NO GROWTH AFTER 5 DAYS Allergies Coded Allergies: No Known Allergies (Unverified , 08/09/18) Home Medications Scheduled Calcium Carbonate/Vitamin D3 (Calcium 600-Vit D3 200 Tablet) 1 Tab Tab, 1 TAB PO DAILY, (Reported) Denosumab Injection (Xgeva) 120 Mg/1.7 Ml Inj, 120 MG SC QMONTH, (Reported) Prednisone (Prednisone) 10 Mg Tablet, 1 TAB PO DAILY, #21 Scheduled PRN Ondansetron HCl (Ondansetron HCl) 8 Mg Tablet, 8 MG PO Q6H PRN for NAUSEA OR VO MITING, #90 MASSIEL JOSUE MD Nov 28, 2019 19:48
[2019-11-28] MEDS ORDERED: KETOROLAC 30 MG/ML 1ML VIAL IV ONE (20:00)
[2019-11-28 22:00] VITALS: BP 124/86
[2019-11-29] VITALS (7 sets, daily range): BP systolic 121–154; BP diastolic 73–88
[2019-11-29] MEDS: SLF 3 ML SYR IV SCH ×3 (05:00→22:29)
[2019-11-29] MEDS: PIPERACILLIN/TAZOBACTAM SOD 3.375 GM in D5W MINI-BAG PLUS 50 ML IV SCH ×3 (05:06→17:41)
[2019-11-29] MEDS ORDERED: ACETAMINOPHEN 500 MG TAB PO PRN (05:30)
[2019-11-29] MEDS: ACETAMINOPHEN TAB 650MG DOSE (2X325MG) PO PRN ×3 (06:01→20:17)
[2019-11-29 06:34] LABS: HEMATOCRIT 29.4 % (42.0-52.0); HEMOGLOBIN 9.1 g/dl (13.5-17.5); MEAN CORPUSCULAR HEMOGLOBIN 29.1 pg (27.0-33.0); MEAN CORPUSCULAR VOLUME 93.9 fl (80.0-96.0); RED BLOOD COUNT 3.13 10^6/uL (4.30-6.10); WHITE BLOOD COUNT 9.4 10^3/uL (4.0-10.0)
[2019-11-29 06:35] LABS: PLATELET COUNT, AUTOMATED 67 10^3/uL (150-450)
[2019-11-29 06:53] LABS: BASOPHILS 1 % (0-1); EOSINOPHILS 2 % (0-3); LYMPHOCYTES 15 % (16-44); METAMYELOCYTES 2 % (0-0); MONOCYTES 5 % (0-5); MYELOCYTES 5 % (0-0); NEUTROPHILS 62 % (28-66); PLATELET ESTIMATE DECREASED (NORMAL)
[2019-11-29 07:01] LABS: ALBUMIN 2.1 GM/DL (3.2-5.2); BILIRUBIN,DIRECT 0.2 MG/DL (0.0-0.2); BILIRUBIN,TOTAL 0.5 MG/DL (0.2-1.0); TOTAL PROTEIN 6.2 GM/DL (6.4-8.2)
[2019-11-29 07:07] LABS: BLOOD UREA NITROGEN 8 MG/DL (7-18); CALCIUM LEVEL 7.2 MG/DL (8.8-10.2); CARBON DIOXIDE LEVEL 23 MEQ/L (21-32); CHLORIDE LEVEL 104 MEQ/L (98-107); GLOMERULAR FILTRATION RATE > 60.0 (>42); GLUCOSE, FASTING 93 MG/DL (70-100); IMMUNOGLOBULIN G 449 MG/DL (681-1648); LDH LACTATE DEHYDROGENASE 487 U/L (87-241); POTASSIUM SERUM 3.7 MEQ/L (3.5-5.1); SODIUM LEVEL 137 MEQ/L (136-145)
[2019-11-29] MEDS ORDERED: KETOROLAC 30 MG/ML 1ML VIAL IV ONE (07:15)
[2019-11-29] MEDS: NS 1,000 ML IV SCH ×2 (07:42→15:10)
[2019-11-29] MEDS: CALCIUM CARBONATE 500 MG CHEW U/D PO SCH (08:29)
[2019-11-29] MEDS: LACTOBACILLUS ACIDOPHILUS CAP (BACID) PO SCH ×2 (08:29→18:01)
[2019-11-29] MEDS: DOXYCYCLINE HYCLATE 100MG TABLET PO SCH ×2 (08:29→20:02)
[2019-11-29] MEDS: ANALGESIC BALM CRM 120 GM TOP SCH ×4 (08:30→20:02)
--- NOTE | 2019-11-29 08:56 | ECHO ---
DATE OF PROCEDURE: 11/27/2019 AGE: 74. GENDER: Male. HEIGHT: 68 inches. WEIGHT: 185 pounds. BODY SURFACE AREA: 1.98 sq m. INPATIENT: [address] [place] [address], room 4226. REFERRING PHYSICIAN: Charisse Dimas INDICATION: Fever. Heart murmur. MEASUREMENTS: 2D measurements: RV - 3.6 cm LV - 5.3 cm Septum 1.3 cm Posterior wall 1.3 cm Aortic root 3.9 cm LA - 4.6 cm LVEF 65% Doppler measurements: AV - 1.33 m/s LVOT - 0.97 m/s MV - E 100 LVOT diameter: 2.2 cm MB-E 75 A 99 EA ratio 0.8 Early mitral deceleration time 153 ms E prime medial 5 A prime medial 9 E prime lateral 10 Average E/E prime ratio 10/PCWP 14.3 mmHg PV - 0.95 m/s Pulmonary artery acceleration time 108 ms RPSP 41 mmHg IVC - 1.3 cm COMMENTS: Normal sinus rhythm without intraventricular conduction disturbance. M-mode and two-dimensional echocardiography was performed with pulsed, continuous wave, color flow, and tissue Doppler studies. Mild concentric left ventricular hypertrophy with normal wall motion. Mild to moderately dilated left atrium with grade 1 left ventricle (LV) diastolic dysfunction and current estimated mean left atrial pressure upper limits of normal. Normal right ventricular size and wall motion with Doppler evidence of moderate pulmonary hypertension. Normal right atrial and inferior vena cava (IVC) size and respiratory collapse against an elevated central venous pressure. Mildly dilated aortic root but normal ascending aortic diameter of 3.7 cm. Asymmetrical thickening of the aortic valve, which has three cusps. There seemed to be a localized thickening of the aortic side of the left coronary cusp associated with an eccentric moderate aortic insufficiency jet. Moderate mitral annular calcification with normal leaflet excursion and no posterior systolic buckling but mild mitral insufficiency. Normal-appearing tricuspid valve with moderate insufficiency. No separate intracardiac mass. Small localized posterior pericardial effusion measuring at most 0.8 cm. It may be prudent to consider a transesophageal echocardiogram to further define aortic valve structure and function.
[2019-11-29 11:58] LABS: TESTOSTERONE 34 NG/DL (241-827)
--- NOTE | 2019-11-29 15:01 | ECGEPIP ---
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 Nonspecific ST/T wave abnormalities. Ectopic activity new from 11/22/19 Clinical correlation advised Electronically Signed on 11-29-2019 15:00:58 EDT by Matthew Maddox
[2019-11-29] MEDS ORDERED: KETOROLAC 30 MG/ML 1ML VIAL IV PRN (17:15)
--- NOTE | 2019-11-29 17:30 | IPNPDOC ---
Date Seen The patient was seen on 11/29/19. Progress Note SUBJECTIVE Fevers as high as 103.2F/24 hrs. Multiple cultures still pending. Echo abnormal, PORSHA to be done. Poor PO intake over past 48 hours. H/H slightly improved. Denies shortness of breath, chest pain, cough, n/v, diarrhea. OBJECTIVE: VITAL SIGNS: Please see below Physical exam: GENERAL: elderly male. In no acute distress, AAOx 3 HENT: Neck is supple with no adenopathy or thyromegaly, oral mucosa is moist, poor dentition CV: Regular rate and rhythm, no appreciable murmur. RESP: Clear to auscultation, no rhonchi, rales or wheezes. ABD: Soft, nontender, nondistended. EXT: No peripheral edema, full range of motion and strength to all extremities, pedal pulses palpable NEURO: No focal neuromotor or sensory deficits, he is fully independently ambulatory PSYCH: Depressed mood, normal affect LABORATORY: Please see below MICROBIOLOGY: Blood cultures x 2 sets 11/22/19: NG to date Blood culture x 1 set 11/25/19: NG to date UA 11/22/19: Neg UA 11/25/19: Neg Resp panel: neg Sputum culture: unable to be provided thus far Pending: tick borne disease testing, urine strep pneumoniae, urine legionella IMAGING: Echocardiogram 11/28/19: Normal sinus rhythm without intraventricular conduction disturbance. M-mode and two-dimensional echocardiography was performed with pulsed, continuous wave, color flow, and tissue Doppler studies. Mild concentric left ventricular hypertrophy with normal wall motion. Mild to moderately dilated left atrium with grade 1 left ventricle (LV) diastolic dysfunction and current estimated mean left atrial pressure upper limits of normal. Normal right ventricular size and wall motion with Doppler evidence of moderate pulmonary hypertension. Normal right atrial and inferior vena cava (IVC) size and respiratory collapse against an elevated central venous pressure. Mildly dilated aortic root but normal ascending aortic diameter of 3.7 cm. Asymmetrical thickening of the aortic valve, which has three cusps. There seemed to be a localized thickening of the aortic side of the left coronary cusp associated with an eccentric moderate aortic insufficiency jet. Moderate mitral annular calcification with normal leaflet excursion and no posterior systolic buckling but mild mitral insufficiency. Normal-appearing tricuspid valve with moderate insufficiency. No separate intracardiac mass. Small localized posterior pericardial effusion measuring at most 0.8 cm. It may be prudent to consider a transesophageal echocardiogram to further define aortic valve structure and function. CXR 11/25/19 1. Interval development of significant pneumonia left lower lung zone with air bronchograms. No definite effusion. 2. Right lung without definite infiltrate. Slight elevation of the right diaphragm has increased since 11/22/2019. 3. Diffuse sclerotic metastases throughout his skeletal system from his known prostate carcinoma. 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 PLAN: 1. LLL PNA. -Immunocompromised, WBC wnl. Fevers as high as 103.2F over the past 24 hours again with abx. -Received 2 doses of Vancomycin on 11/21 and 11/22 before MRSA came back neg -Microbiology above, many tests still pending -Sputum cx unable to be provided thus far -C/w zosyn (Day 8), PO doxycycline (Day 3) -ID consulted 2. Fevers -Could be 2/2 to LLL PNA vs. other unidentified infection at present time -Echo above, abnormal: It may be prudent to consider a transesophageal echocardiogram to further define aortic valve structure and function. -Repeat CXR 11/25/19 showed progressive PNA, other microbiology above with sputum culture not able to be provided yet -C/w zosyn (Day 8) and doxycycline (Day 3). -Discussed with ID, ordering additional testing for EBV. -F/u PORSHA results, tick-borne disease testing, hx of lyme: lyme, ehrlichiosis, babesiosis , urine studies -Tylenol, toradol IV being used intermittently 3. Acute on chronic anemia, r/o hemolytic process with increased LDH. -Cannot r/o 2/2 to ? myelodysplastic process with thrombocytopenia vs. metastatic CA vs. chemotherapy -Occult blood neg -S/p 4 units PRBC since admission - H/H slightly improved - Discussed case with Dr. Max (heme/onc), please see consult note 4. Prostate cancer with bone metastasis -Currently undergoing chemotherapy without neutropenia. - Discussed case with Dr. Max (heme/onc), please see consult note 5. Acute thrombocytopenia -r/o 2/2 to infection vs. myelodysplastic cause -In need of BM biopsy according to heme/onc notes -F/u daily CBC, heme/onc recs 6. DVT px. -SCD, teds DISPOSITION: Currently inpatient status. Plan is discharge home when medically improved. VS, I&O, 24H, Fishbone Vital Signs/I&O Vital Signs Date Time Temp Pulse Resp B/P (MAP) Pulse Ox O2 Delivery O2 Flow Rate FiO2 11/29/19 14:00 101.1 80 19 154/87 (109) 96 Room Air I&O- Last 24 Hours up to 6 AM 11/29/19 05:59 Intake Total 2430 ml Output Total 2375 ml Balance 55 ml Laboratory Data 24H LABS Laboratory Tests 2 11/28/19 20:25: Magnesium Level 2.5H 11/29/19 06:07: Immature Granulocyte % (Auto) , Neutrophils (%) (Auto) , Reticulocyte # (auto) 27.5, Nucleated Red Blood Cells % (auto) 1.5H, Neutrophils 62, Band Neutrophils 8, Lymphocytes (Manual) 15L, Monocytes (Manual) 5, Eosinophils (Manual) 2, Basophils (Manual) 1, Metamyelocytes 2H, Myelocytes 5H, Red Blood Cell Morphology NORMAL, Platelet Estimate DECREASED, Immature Platelet Fraction 4.2, Percent Reticulocyte Count 0.9, Reticulocyte Hemoglobin Equivalent 27.3, Anion Gap 10, Glomerular Filtration Rate > 60.0, Calcium Level 7.2L, Total Bilirubin 0.5, Direct Bilirubin 0.2, Aspartate Amino Transf (AST/SGOT) 72H, Alanine Aminotransferase (ALT/SGPT) 50, Alkaline Phosphatase 524H, Lactate Dehydrogenase 487H, Total Protein 6.2L, Albumin 2.1L, Albumin/Globulin Ratio 0.5, Total Testosterone 34L, Immunoglobulin A 200.0, Immunoglobulin G 449L, Immunoglobulin M 76.0 CBC/BMP Laboratory Tests 11/29/19 06:07 Microbiology Microbiology 11/26/19 Stool Occult Blood (RONNI) - Final, Complete 11/25/19 Blood Culture - Preliminary, Resulted No Growth after 72 hours. All specime... 11/22/19 Respiratory Virus Panel (PCR) (RONNI) - Final, Complete 11/22/19 Blood Culture - Final, Complete NO GROWTH AFTER 5 DAYS 11/22/19 Blood Culture - Final, Complete NO GROWTH AFTER 5 DAYS Current Medications Current Medications Medications (Trade) Dose Ordered Sig/Mahi Route PRN Reason Start Time Stop Time Status Last Admin Dose Admin Acetaminophen (Tylenol Tab) 650 mg Q4HP PRN PO fever 11/29/19 05:30 11/29/19 05:31 DC Acetaminophen (Tylenol Tab) 650 mg Q4HP PRN PO fever 11/29/19 05:31 11/29/19 15:04 Acetaminophen (Tylenol Tab) 1,000 mg QHS PO 11/23/19 21:00 11/23/19 11:11 DC Acetaminophen (Tylenol Tab) 1,000 mg TID PO 11/23/19 09:00 11/29/19 05:21 DC 11/28/19 21:14 Calcium Carbonate (Tums) 1,000 mg DAILY PO 11/29/19 09:00 11/29/19 08:29 Diatrizoate Meglum/ Diatrizoate Sod (Gastrografin) 10 ml Q30M PO 11/28/19 07:00 11/28/19 07:31 DC 11/28/19 07:56 Doxycycline Hyclate (Vibramycin) 100 mg BID PO 11/27/19 09:00 11/29/19 08:29 Home Med (Med Rec Complete!) ASDIRECTED XX 11/22/19 13:30 11/22/19 13:23 DC Ibuprofen (Advil) 200 mg NOW STAT PO 11/25/19 05:58 11/25/19 05:59 DC 11/25/19 06:22 Lactobacillus Acidophilus (Bacid) 1 ea BIDWM PO 11/28/19 12:30 11/29/19 08:29 Magnesium Hydroxide (Milk Of Magnesia) 30 ml Q4HP PRN PO CONSTIPATION 11/23/19 10:45 11/26/19 15:51 Menthol/Methyl Salicylate (Bengay Cream) AFFECTED RIGHT HIP QID TOP 11/23/19 13:00 11/26/19 17:39 Ondansetron HCl (ZOFRAN INJection) 4 mg Q4HP PRN IV NAUSEA OR VOMITING 11/23/19 14:30 11/28/19 18:25 Piperacillin Sod/ Tazobactam Sod 3.375 gm/Dextrose 50 ml @ 50 mls/hr Q6H IV 11/22/19 23:00 11/29/19 11:56 Senna/Docusate Sodium (Senokot S) 2 tab BIDP PRN PO CONSTIPATION 11/23/19 10:45 7/13/20 15:51 Sodium Chloride 1,000 ml @ 75 mls/hr [id number] IV 11/27/19 14:30 11/29/19 15:10 Sodium Chloride (Saline Lock Flush) 2 ml ASDIRECTED PRN IV SEE LABEL COMMENTS 11/23/19 16:45 Sodium Chloride (Saline Lock Flush) 2 ml SLF IV 11/23/19 22:00 11/27/19 14:14 Trazodone HCl (Desyrel) 25 mg QHSP PRN PO INSOMNIA 11/22/19 21:15 11/23/19 20:45 Vancomycin HCl 1000 mg/IV Miscellaneous Supplies 1 each/ Dextrose 270 ml @ 270 mls/hr Q12H IV 11/23/19 06:00 11/23/19 08:55 DC 11/23/19 06:42 Allergies Coded Allergies: No Known Allergies (Unverified , 08/09/18) Charisse Dimas MD Nov 29, 2019 17:30
--- NOTE | 2019-11-29 18:24 | IPNPDOC ---
Date Seen The patient was seen on 11/29/19. 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 He is admitted to the hospital with severe anemia and pancytopenia likely chemotherapy-induced. He received 1 dose of cabazetaxel and became pancytopenic. Currently he has fever which changes between 101 03. He has been fully investigated and is being investigated with blood cultures. He is found to have right lower lung pneumonia and is being treated with empiric antibiotics. Currently he feels better although he is bored while in the hospital. He does not have any major cough phlegm or wheezing. He denies chest pain or palpitation no headache or dizziness and has no urinary symptoms. OBJECTIVE PHYSICAL EXAMINATION: VITAL SIGNS: Please see below. GENERAL: Palliative gentleman lying comfortably in no acute distress HEENT: Normal CARDIOVASCULAR: Normal without any third heart sound or murmur RESPIRATORY: No crackles or wheezing. ABDOMINAL: Soft no visceromegaly EXTREMITIES: Minimal pedal edema NEUROLOGICAL: No gross neurological deficit PSYCHOLOGICAL: Mild depression ASSESSMENT AND PLAN: This is a 74-year-old white male with metastatic prostate cancer with metastases to bones now with pancytopenia and anemia and pneumonia. His iron profile from October was nonconclusive with low TIBC because of element of anemia of chronic disease. His STFR was high at 31 which shows iron deficiency. He received 1 dose of epotin alpha on November 2019 and he is due for his second dose today. We'll give 1 dose of Injectafer overnight and tomorrow we'll give epotin alpha 40,000 units subcutaneous [address] Dimas about his condition. ID attending is following the patient closely. Patient IgG level is low at 449. Obviously since he is infected and is febrile he should be given 1 dose of IVIG 30-40 g into 1 dose. That will help to combat his infection and his immunity. Patient's CBC should be checked on daily basis. Once patient is discharged he will be further treated for metastatic bone disease with Xofigo. He has neuroendocrine differentiation and we will give cisplatin and etoposide if he fully recovers from his current situation.. VS, I&O, 24H, Fishbone Vital Signs/I&O Vital Signs Date Time Temp Pulse Resp B/P (MAP) Pulse Ox O2 Delivery O2 Flow Rate FiO2 11/29/19 14:00 101.1 80 19 154/87 (109) 96 Room Air I&O- Last 24 Hours up to 6 AM 11/29/19 05:59 Intake Total 2430 ml Output Total 2375 ml Balance 55 ml Laboratory Data 24H LABS Laboratory Tests 2 11/28/19 20:25: Magnesium Level 2.5H 11/29/19 06:07: Immature Granulocyte % (Auto) , Neutrophils (%) (Auto) , Reticulocyte # (auto) 27.5, Nucleated Red Blood Cells % (auto) 1.5H, Neutrophils 62, Band Neutrophils 8, Lymphocytes (Manual) 15L, Monocytes (Manual) 5, Eosinophils (Manual) 2, Basophils (Manual) 1, Metamyelocytes 2H, Myelocytes 5H, Red Blood Cell Morphology NORMAL, Platelet Estimate DECREASED, Immature Platelet Fraction 4.2, Percent Reticulocyte Count 0.9, Reticulocyte Hemoglobin Equivalent 27.3, Anion Gap 10, Glomerular Filtration Rate > 60.0, Calcium Level 7.2L, Total Bilirubin 0.5, Direct Bilirubin 0.2, Aspartate Amino Transf (AST/SGOT) 72H, Alanine Means otransferase (ALT/SGPT) 50, Alkaline Phosphatase 524H, Lactate Dehydrogenase 487H, Total Protein 6.2L, Albumin 2.1L, Albumin/Globulin Ratio 0.5, Total Testosterone 34L, Immunoglobulin A 200.0, Immunoglobulin G 449L, Immunoglobulin M 76.0 CBC/BMP Laboratory Tests 11/29/19 06:07 Microbiology Microbiology 11/26/19 Stool Occult Blood ([facility]) - Final, Complete 11/25/19 Blood Culture - Preliminary, Resulted No Growth after 72 hours. All specime... 11/22/19 Respiratory Virus Panel (PCR) ([facility]) - Final, Complete 11/22/19 Blood Culture - Final, Complete NO GROWTH AFTER 5 DAYS 11/22/19 Blood Culture - Final, Complete NO GROWTH AFTER 5 DAYS MARLENE DEL CASTILLO MD Nov 29, 2019 18:24
[2019-11-29] MEDS ORDERED: IMMUNE GLOBULIN 10% 30 GM in IV 1 EA IV SCH (18:30)
[2019-11-29 19:29] LABS: MONO REFLEX EBV COMP NEGATIVE (NEGATIVE)
[2019-11-29] MEDS ORDERED: diphenhydrAMINE 25MG CAP PO ONE (19:30)
[2019-11-29] MEDS ORDERED: FERRIC CARBOXYMALTOSE INJ 750 MG in NS 250 ML IV ONE (20:00)
[2019-11-29] MEDS ORDERED: IMMUNE GLOBULIN 10% 10 GM in IV 1 EA IV ONE (22:00)
[2019-11-29] MEDS ORDERED: IMMUNE GLOBULIN 10% 20 GM in IV 1 EA IV ONE (22:00)
[2019-11-30] VITALS (19 sets, daily range): BP systolic 94–200; BP diastolic 56–114
--- NOTE | 2019-11-30 00:21 | IPN ---
DATE: 11/29/2019 Mr. Moore is not doing very well because of a decreased appetite. He has been drinking Ensure at least three a day. He feels bloated. He has no nausea, vomiting or diarrhea. He continues with fever in spite of being on Zosyn and doxycycline. His temperature this morning was 102.3. He denies any headache or neck stiffness. LABORATORY DATA: White count is 9.4, hemoglobin 9.1, hematocrit 29.4, platelets 67, 62% neutrophils, 15% lymphocytes, 8% monocytes, haptoglobin 709, sodium 137, potassium 3.7, chloride 104, bicarbonate 23, BUN 8, creatinine 0.6, glucose 98, calcium 7.2, magnesium 2.5, bilirubin 0.5, AST 72, ALT 50, alkaline phosphatase 524, total protein 6.2, albumin 2.1. Serology: Anaplasma, Babesia, Lyme are pending. Ehrlichia is pending. Urine Legionella antigen, pneumococcal antigen are pending. Blood cultures: No growth after 5 days. Respiratory panel was negative. Blood culture on 11/22/[address] abdomen and pelvis 11/28/2019 shows no significant change compared to prior exam on 09/05/2019, which was no intra-abdominal or intrapelvic mass or adenopathy. Liver, spleen, gallbladder, pancreas, adrenal glands, kidneys are within normal. Chest CT shows right lower lobe opacity and some atelectasis. On physical exam, temperature is 102.3, pulse 76, respirations 22, blood pressure 122/73, oxygen saturation (O2 sat) 97% on room air. Heart: Normal S1, S2. No murmurs appreciated. Lungs: Diminished breath sounds at the bases with few crackles at the right base. Abdomen: Soft, nontender. No hepatosplenomegaly. Back: No costovertebral angle (CVA) or lumbosacral tenderness. Extremities: No clubbing, cyanosis or edema. No rashes. MEDICATIONS: IV immunoglobulin was ordered 30 grams, Ketorolac 15 mg IV every 4 hours as needed for fever, probiotics one tablet by mouth twice a day with meals, doxycycline 100 mg by mouth twice a day, currently day #3, Zosyn 3.375 grams IV every 6 hours, currently day #7. IMPRESSION: 1. Fever in a patient with metastatic prostate cancer associated with severe anemia and thrombocytopenia. Chest x-ray is consistent with a left lower lobe pneumonia, although clinically the patient does not have a pneumonia, has no cough, shortness of breath or hypoxia. He has been on IV Zosyn without improvement in his fever. He has finished 7 days of Zosyn, which will be discontinued. 2. Prostate cancer with metastasis to bones, possibly cause for fever, especially with severe anemia and thrombocytopenia. The patient was scheduled to have a bone marrow biopsy, which was postponed because of his hospitalization. 3. History of Lyme disease. The patient does live on [facility] and could have had a tick-borne illness. Will continue with doxycycline until results of Lyme serology, Babesia and Anaplasma. They would all be covered with doxycycline except for babesiosis, which the patient is at risk due to age and cancer. Although I have not seen cases of babesiosis recently, this still remains in differential. Other differential would also the include CMV, EBV, reactivation and therefore these labs have been ordered. PLAN: Discontinue IV Zosyn. The patient has finished 7 days of treatment without any improvement. Continue oral doxycycline. I will discuss the case with oncology tomorrow, consider having a bone marrow biopsy done sooner than later. The patient has been discussed with Dr. Charisse Dimas ([place]). [facility]
[2019-11-30] MEDS ORDERED: diphenhydrAMINE 50MG/ML VIAL (J1200) As Ordered ONE (00:26)
[2019-11-30] MEDS ORDERED: methylPREDNISolone 125MG 2ML VIAL As Ordered ONE (00:26)
[2019-11-30] MEDS ORDERED: methylPREDNISolone 125MG 2ML VIAL IV ONE (00:30)
[2019-11-30] MEDS ORDERED: ALBUTEROL SULFATE 2.5 MG/0.5 ML INH NEB SOLN INH PRN (00:30)
[2019-11-30] MEDS ORDERED: diphenhydrAMINE 50MG/ML VIAL (J1200) IV PRN (00:30)
[2019-11-30 00:37] LABS: ABG HCO3 14.3 MEQ/L (22.0-26.0); ABG O2 SATURATION 99.8 % (95.0-99.0); ABG PARTIAL PRESSURE CO2 29.5 mmHg (35.0-45.0); ABG PARTIAL PRESSURE O2 231.3 mmHg (75.0-100.0); ABG STANDARD HCO3 15.7 MEQ/L (22.0-26.0); ABG TOTAL CO2 15.2 MEQ/L (23.0-31.0); ABG pH (ARTERIAL) 7.302 UNITS (7.350-7.450)
[2019-11-30 00:42] LABS: HEMATOCRIT 31.2 % (42.0-52.0); HEMOGLOBIN 9.4 g/dl (13.5-17.5); MEAN CORPUSCULAR HEMOGLOBIN 29.5 pg (27.0-33.0); MEAN CORPUSCULAR HGB CONC 30.1 g/dl (32.0-36.5); MEAN CORPUSCULAR VOLUME 97.8 fl (80.0-96.0); RED BLOOD COUNT 3.19 10^6/uL (4.30-6.10)
[2019-11-30 00:56] LABS: PLATELET COUNT, AUTOMATED 77 10^3/uL (150-450)
[2019-11-30 01:11] LABS: ERYTHROCYTE SEDIMENTATION RATE 127 mm/hr (0-20)
[2019-11-30 01:16] LABS: ANISOCYTOSIS 1+; BLAST CELLS 1 % (0-0); EOSINOPHILS 1 % (0-3); LYMPHOCYTES 44 % (16-44); METAMYELOCYTES 5 % (0-0); MYELOCYTES 6 % (0-0); NEUTROPHILS 38 % (28-66); PLATELET ESTIMATE DECREASED (NORMAL); POLYCHROMASIA 1+
[2019-11-30] MEDS: FAMOTIDINE IV BAG 20 MG in IV 1 EA IV SCH ×2 (01:23→11:50)
[2019-11-30 01:26] LABS: ALBUMIN 2.1 GM/DL (3.2-5.2); ALT/SGPT 57 U/L (12-78); BILIRUBIN,TOTAL 0.3 MG/DL (0.2-1.0); BLOOD UREA NITROGEN 8 MG/DL (7-18); CARBON DIOXIDE LEVEL 18 MEQ/L (21-32); CHLORIDE LEVEL 104 MEQ/L (98-107); CK-MB VALUE MASS < 1.0 NG/ML (<3.6); CPK CREATINE PHOSPHOKINASE 65 U/L (39-308); CREATININE FOR GFR 0.82 MG/DL (0.70-1.30); GLOMERULAR FILTRATION RATE > 60.0 (>42); GLUCOSE, FASTING 138 MG/DL (70-100); MB/CK RELATIVE INDEX 1.54 (< OR =4); POTASSIUM SERUM 4.1 MEQ/L (3.5-5.1); SODIUM LEVEL 138 MEQ/L (136-145); TOTAL PROTEIN 6.4 GM/DL (6.4-8.2); TROPONIN I < 0.02 NG/ML (< 0.10)
--- NOTE | 2019-11-30 01:37 | REPVR ---
PROCEDURE INFORMATION: Exam: XR Chest, 1 View Exam date and time: 11/30/2019 12:40 AM Age: 74 years old Clinical indication: Other: SOB TECHNIQUE: Imaging protocol: XR of the chest Views: 1 view. COMPARISON: CT Chest with contrast 11/28/2019 9:32 AM FINDINGS: Lungs: No right lung infiltrate. Focal infiltrate in the left midlung. Pleural space: Unremarkable. No pleural effusion. No pneumothorax. Heart/Mediastinum: Unremarkable. No cardiomegaly. Bones/joints: Diffuse sclerosis of the osseous structure. IMPRESSION: 1. Focal infiltrate in the left midlung. Suspicious for pneumonia. 2. Diffuse sclerosis of the osseous structure. Consistent with metastasis. Correlate with history. Electronically signed by: Zoe Alejandro On 11/30/2019 01:37:45 AM
[2019-11-30] MEDS ORDERED: NS 1,000 ML IV ONE (01:45)
[2019-11-30] MEDS ORDERED: ISOVUE-370 76% 100ML VIAL As Ordered ONE (02:10)
[2019-11-30] MEDS ORDERED: ZOSYN 3.375GM VIAL (J2543) As Ordered ONE (02:41)
[2019-11-30] MEDS: PIPERACILLIN/TAZOBACTAM SOD 3.375 GM in D5W MINI-BAG PLUS 50 ML IV SCH (02:43)
--- NOTE | 2019-11-30 02:51 | IPNPDOC ---
Text Note Date of Service The patient was seen on 11/30/19. NOTE Rapid assessment at 12:15AM: Subjective: I responded to rapid assessment and examined the patient at the bedside. Patient appeared to be in respiratory distress, was tachypneic, tachycardic and hypertensive shortly after completing the first vial of his IVIG infusion. Objective: Vitals (See below) General: Lying in bed, appeared to be in distress, AAOx3 HEENT: NC, AT CVS: Tachycardic +S1S2 Lungs: Fair air entry b/l, wheezing diffusely. No rhonchi or crackles Abdomen: Soft, ND, NT Extremities: - Edema, - Calf tenderness Assessment and plan: Possible allergic reaction to IVIG - Ordered CBC / CMP / Mag / Lactic acid / Cardiac markers - CXR - EKG - ABG - Started Solumedrol (loading dose / maintenance), Famotidine, Benadryl, Albuterol nebulization VS,Fishbone, I+O VS, Fishbone, I+O Laboratory Tests 11/29/19 06:07 11/30/19 00:32 Vital Signs Date Time Temp Pulse Resp B/P (MAP) Pulse Ox O2 Delivery O2 Flow Rate FiO2 11/30/19 00:40 83 36 94 Non-Rebreather 15.0 11/30/19 00:31 184/84 (117) 11/30/19 00:00 99.8 I&O- Last 24 Hours up to 6 AM 11/30/19 05:59 Intake Total 2465 ml Output Total 1000 ml Balance 1465 ml AUGUSTUS WESTBROOK MD Nov 30, 2019 02:51
--- NOTE | 2019-11-30 03:31 | REPVR ---
PROCEDURE INFORMATION: Exam: CT Angiography Chest With Contrast Exam date and time: 11/30/2019 1:54 AM Age: 74 years old Clinical indication: Fever; Additional info: Tachycardia / hypoxia. History of prostate cancer. TECHNIQUE: Imaging protocol: Computed tomographic angiography of the chest with intravenous contrast. 3D rendering: MIP and/or 3D reconstructed images were created by the technologist. Radiation optimization: All CT scans at this facility use at least one of these dose optimization techniques: automated exposure control; mA and/or kV adjustment per patient size (includes targeted exams where dose is matched to clinical indication); or iterative reconstruction. Contrast material: ISO; Contrast volume: 75 ml; Contrast route: INTRAVENOUS (IV); COMPARISON: CT Chest with contrast 11/28/2019 9:32 AM FINDINGS: Pulmonary arteries: Normal. No pulmonary emboli. Aorta: Dilatation of the ascending thoracic aorta measuring 4.2 cm. Aortic arch measures 3.7 cm. Descending thoracic aorta measures 3.0 cm. No aortic rupture. Suboptimal contrast opacification of the aorta. Tracheobronchial tree: Visualized airway is unremarkable. Lungs: Focal consolidation in the superior right lower lobe. Mild subpleural blebs. Pulmonary venous congestion. Pleural space: Unremarkable. No pneumothorax. No pleural effusion. Heart: Mild cardiomegaly. Coronary arteries: Moderate coronary artery calcification. Lymph nodes: Unremarkable. No enlarged lymph nodes. Liver: Multiple hypodense lesions in the liver measuring up to 2.5 cm. Gallbladder and bile ducts: Gallbladder is dilated. Bones/joints: Diffuse sclerotic lesions consistent with metastatic disease. Soft tissues: Unremarkable. IMPRESSION: 1. Negative for pulmonary embolism. 2. Pulmonary venous congestion. 3. Focal consolidation in the superior right lower lobe. No change from prior. Suspicious for pneumonia. Recommend follow-up to resolution. 4. Mild bilateral pleural effusions. New from prior. 5. Dilatation of the ascending thoracic aorta. No change from prior. 6. Multiple hypodense lesions in the liver. No change from prior. Suspect cysts. 7. Diffuse sclerotic lesions consistent with metastatic disease. No change from prior. 8. Additional findings as described. Electronically signed by: Zoe Alejandro On 11/30/2019 03:31:36 AM
[2019-11-30] MEDS: NS 1,000 ML IV SCH (04:16)
[2019-11-30 04:38] LABS: BASO % 0.5 % (0.0-1.0); EOS % 0.5 % (0.0-3.0); HEMATOCRIT 24.3 % (42.0-52.0); HEMOGLOBIN 7.7 g/dl (13.5-17.5); LYMPH # 0.9 10^3/uL (1.5-5.0); LYMPH % 12.6 % (24.0-44.0); MEAN CORPUSCULAR HEMOGLOBIN 29.4 pg (27.0-33.0); MEAN CORPUSCULAR HGB CONC 31.7 g/dl (32.0-36.5); MEAN CORPUSCULAR VOLUME 92.7 fl (80.0-96.0); MONO # 0.4 10^3/uL (0.0-0.8); MONO % 4.9 % (0.0-5.0); NEUTROPHILS # 4.8 10^3/uL (1.5-8.5); NEUTROPHILS % 65.9 % (36.0-66.0); RED BLOOD COUNT 2.62 10^6/uL (4.30-6.10); WHITE BLOOD COUNT 7.3 10^3/uL (4.0-10.0)
[2019-11-30 04:56] LABS: PLATELET COUNT, AUTOMATED 58 10^3/uL (150-450)
[2019-11-30 05:14] LABS: ALBUMIN 1.8 GM/DL (3.2-5.2); ALT/SGPT 53 U/L (12-78); BILIRUBIN,TOTAL 0.5 MG/DL (0.2-1.0); BLOOD UREA NITROGEN 8 MG/DL (7-18); CARBON DIOXIDE LEVEL 21 MEQ/L (21-32); CHLORIDE LEVEL 106 MEQ/L (98-107); CK-MB VALUE MASS 16.4 NG/ML (<3.6); CPK CREATINE PHOSPHOKINASE 216 U/L (39-308); CREATININE FOR GFR 0.62 MG/DL (0.70-1.30); GLOMERULAR FILTRATION RATE > 60.0 (>42); GLUCOSE, FASTING 160 MG/DL (70-100); MB/CK RELATIVE INDEX 7.59 (< OR =4); POTASSIUM SERUM 3.8 MEQ/L (3.5-5.1); SODIUM LEVEL 136 MEQ/L (136-145); TOTAL PROTEIN 5.7 GM/DL (6.4-8.2); TROPONIN I 7.56 NG/ML (< 0.10)
--- NOTE | 2019-11-30 05:56 | IPNPDOC ---
Text Note Date of Service The patient was seen on 11/30/19. NOTE Interval update: Subjective: I was called about an elevated troponin. Currently patient is asymptomatic in bed. Reports he feels significantly better. Objective: Vitals (See below) General: Sitting up in bed, no acute distress, AAOx3 HEENT: NC, AT CVS: RRR, +S1S2 Lungs: Fair air entry b/l, no rhonchi / rales /wheezing Abdomen: Soft, ND, NT Extremities: No edema, - Calf tenderness Assessment and plan: Elevated troponin - possibly 2/2 hypertensive urgency, possibly 2/2 NSTEMI - No chest pain, SOB or palpitations currently - Troponin elevated compared to prior - EKG repeated at bedside shows resolution of ST segment depression; no evidence of T-wave inversions - Called cardiology, Dr. Cuevas; - Will start Atorvastatin / ASA 81 / Metoprol (with holding parameters) - Will trend troponin q6h VS,Fishbone, I+O VS, Fishbone, I+O Laboratory Tests 11/29/19 06:07 11/30/19 00:32 11/30/19 04:20 Vital Signs Date Time Temp Pulse Resp B/P (MAP) Pulse Ox O2 Delivery O2 Flow Rate FiO2 11/30/19 04:00 3.0 11/30/19 04:00 101.2 100 17 105/70 (82) 98 Nasal Cannula I&O- Last 24 Hours up to 6 AM 11/30/19 06:00 Intake Total 3430 ml Output Total 1400 ml Balance 2030 ml AUGUSTUS WESTBROOK MD Nov 30, 2019 05:56
[2019-11-30] MEDS: SLF 3 ML SYR IV SCH ×2 (06:00→15:30)
[2019-11-30] MEDS: METOPROLOL TART 12.5 MG PER 1/2 TAB PO SCH ×3 (06:00→17:34)
[2019-11-30] MEDS ORDERED: ATORVASTATIN 20 MG TAB PO SCH (06:34)
[2019-11-30] MEDS ORDERED: ASPIRIN 81 MG ENTERIC TAB PO SCH (06:35)
[2019-11-30] MEDS ORDERED: methylPREDNISolone 125MG 2ML VIAL IV SCH ×2 (08:00)
[2019-11-30] MEDS: LACTOBACILLUS ACIDOPHILUS CAP (BACID) PO SCH ×2 (08:00→17:26)
[2019-11-30] MEDS: CALCIUM CARBONATE 500 MG CHEW U/D PO SCH (09:00)
[2019-11-30] MEDS: ANALGESIC BALM CRM 120 GM TOP SCH ×3 (09:00→17:00)
[2019-11-30] MEDS: DOXYCYCLINE HYCLATE 100MG TABLET PO SCH (09:07)
[2019-11-30 12:58] LABS: CK-MB VALUE MASS 22.7 NG/ML (<3.6); MB/CK RELATIVE INDEX 7.39 (< OR =4); TROPONIN I 9.72 NG/ML (< 0.10)
[2019-11-30] MEDS ORDERED: RISATAB3 PO (14:17)
[2019-11-30] MEDS ORDERED: ATOR1TAB21 PO (14:17)
[2019-11-30] MEDS ORDERED: ASPI81TAEC PO (14:17)
[2019-11-30] MEDS ORDERED: ALB2.5NEB INH (14:17)
[2019-11-30] MEDS ORDERED: MUSCCRE9 TOP (14:17)
[2019-11-30] MEDS ORDERED: Ketorolac Tromethamine IV (14:17)
[2019-11-30] MEDS ORDERED: ACET1TAB55 PO (14:17)
[2019-11-30] MEDS ORDERED: DOXY100T PO (14:17)
[2019-11-30] MEDS ORDERED: TRAZ-252 PO (14:18)
[2019-11-30] MEDS ORDERED: METO1TAB87 PO (14:18)
[2019-11-30] MEDS ORDERED: SENN-52 PO (14:18)
[2019-11-30] MEDS ORDERED: ONDA4INJ4 IV (14:18)
[2019-11-30] MEDS ORDERED: PROTPAK PO (14:22)
[2019-11-30] MEDS ORDERED: PIPE3INJ6 IV (14:24)
[2019-11-30] MEDS ORDERED: PIPERACILLIN/TAZOBACTAM SOD 3.375 GM in D5W MINI-BAG PLUS 50 ML IV SCH (15:00)
--- NOTE | 2019-11-30 15:30 | DS.PDOC ---
Discharge Summary General Date of Admission Nov 22, 2019 at 15:43 Date of Discharge 11/30/19 Attending Physician: Charisse Dimas MD Discharge Summary HISTORY OF PRESENT ILLNESS: Patient is a 74-year-old male with a history of recent 4+4 stage [id number] adenocarcinoma of the prostate seen by Dr. Alicea with very low levels of PSA that started to rise in September sum 0.1, 4 to 5.73 in September 2018. The patient had a CT chest, abdomen and pelvis in August 2019, which showed no evidence of metastatic disease outside of the skeleton; however, bone scan showed diffuse sclerotic lesions that appeared to be worse. The patient began cabazitaxel therapy, a single agent with first dose administered on 09/07/2019 and had a followup appointment with medical oncologist, Dr. Lennon on November 22, 2019. For the past month, the patient has been increasingly fatigued and with generalized weakness with some shortness of breath, said that when he started doing something, he just did not have any energy. He was seen in the medical oncology office, was given 2 units of red blood cell transfusion and a "shot" and had felt better for a few days. When he returned for followup, he was noted to have hemoglobin of 7 again with complaints of dark stools and was sent to the emergency room (ER) for further evaluation. The patient denies any palpitations, chest pain, pressure or tightness. Says that he has had no dizziness or lightheadedness. Denies any hematemesis, bright red blood per rectum, but noted that his stool today was black. In the emergency room (ER), he had a temperature of 102. Hemoglobin was 6.8, hematocrit of 22. He had been recently transfused on 11/08/2019 for hemoglobin of 6.5, increased to 8 and hematocrit of 26, yesterday was 7.5 in the office at 10 a.m. and in the emergency room (ER) at 12:30 was 6.8. Hospitalist was asked to admit the patient for evaluation of fever and for blood transfusion for chemotherapy related anemia. HOSPITAL COURSE: LLL PNA was identified on CXR and, despite being on zosyn + clindamycin, fevers up to 103 F persisted during his 8 day hospital course. Intial workup of UA, BCx x 2 sets, MRSA, resp panel with COVID was neg. Patient was unable to provide sputum sample, as he never had respiratory symptoms. Suspicion arose, due to continued fevers on abx, that the area on lung concerning for PNA was actually possibly extension of carcinoma. Infectious disease was consulted, Rob[place] and malaria later came back neg. With hx of Lyme disease, other tests including babesia, lyme, A. phagocytophil, E. chaffeensis were sent. Also CMV, EBV, urine legionella, S. pneumoniae, urine strep pneumoniae Ag was ordered. Repeat UA neg on 11/25/19, repeat BCx x 2 sets from 11/30/19 are still pending. Echocardiogram was done to r/o endocarditis, later returned abnormal and PORSHA was suggested. WBC remained wnl, HR wnl. Patient received a total of 4 units PRBC during his hospital stay for anemia believed to be 2/2 to chemotherapy vs. possibly myelodysplastic process?. Occult blood neg. Heme/onc was consulted to further evaluate and suggested treatment of hypogammaglobulinema with IVIG 30 g IV . After completing first vial of IVIG (10g) on 11/30/19, patient developed respiratory distress, was tachypneic, tachycardic and hypertensive. It was believed he had an adverse rxn and was treated with IV steroids. H/H worsened from 9.4/31 to 7.7/24 the next AM. CXR and CTA chest after adverse event showed new pulmonary vascular congestion, mild b/l pleural effusions and focal consolidation of RLL. Troponin increased to 7.56 and later again to 11.6. ECG initially showed ST abnormalities which later resolved. Case was discussed with all attendings and the decision was made to transfer to facility where, if there were a valvular abnormality seen on upcoming PORSHA or if his cardiac condition worsened, cardiac surgery or coronary intervention could be performed. Dr. Barrera, cardiology, and hematology were presented the case at [facility]. Both agreed to the transfer and to have ICU possibly admit, they could be consulted. The case was presented to Dr. Yvon Pino, ICU who later accepted patient. The patient was saturating well on 3 L NC prior to discharge, denied chest pain, n/v/d, increased shortness of breath. PAST MEDICAL HISTORY: 1. Prostate cancer with bone metastasis. 2. Hypertension. 3. Hx of lyme disease. PAST SURGICAL HISTORY: Bilateral cataract removal, TRUS biopsy 2017. FAMILY HISTORY: Father at 93 of old age, unknown medical issues. Mother of congestive heart failure (CHF) in her 70s. Diagnosed also with cerebral artery occlusion with cerebral infarction. The patient has one brother that of leukemia, one son of coronary artery disease, myocardial infarction ([place]) at the age of 44, another brother with pancreatic cancer. ALLERGIES: Please see below. DISCHARGE MEDICATIONS: Please see below. Physical exam: GENERAL: elderly male. In no acute distress, AAOx 3 HENT: Neck is supple with no adenopathy or thyromegaly, oral mucosa is moist, poor dentition CV: Regular rate and rhythm, no appreciable murmur. RESP: Clear to auscultation, no rhonchi, rales or wheezes. ABD: Soft, nontender, nondistended. EXT: No peripheral edema, full range of motion and strength to all extremities, pedal pulses palpable NEURO: No focal neuromotor or sensory deficits, he is fully independently ambulatory PSYCH: Depressed mood, normal affect LABORATORY DATA: Please see below IMAGING: CTA chest 11/29/19: 1. Negative for pulmonary embolism. 2. Pulmonary venous congestion. 3. Focal consolidation in the superior right lower lobe. No change from prior. Suspicious for pneumonia. Recommend follow-up to resolution. 4. Mild bilateral pleural effusions. New from prior. 5. Dilatation of the ascending thoracic aorta. No change from prior. 6. Multiple hypodense lesions in the liver. No change from prior. Suspect cysts. 7. Diffuse sclerotic lesions consistent with metastatic disease. No change from prior. CT abd/pelvis 11/28/19: No significant change in the appearance of the liver, gallbladder, spleen, pancreas, adrenal glands, and kidneys. The gallbladder has increased slightly in size from the prior exam but is otherwise unchanged and within normal limits. There is no change in the appearance of the ventral or left inguinal hernias. There is no significant change in the appearance of the bowel loops or their mesenteries. There is no intestinal obstruction. No free fluid or free air has developed. There is no significant change in the appearance of the abdominal aorta or para-aortic regions. No intra-abdominal or intrapelvic mass or adenopathy has developed. There is no change in the appearance of the abdominal aorta or para-aortic regions. No significant change compared to the prior exam of 09/05/2019 with findings as described above. CXR 11/25/19 1. Interval development of significant pneumonia left lower lung zone with air bronchograms. No definite effusion. 2. Right lung without definite infiltrate. Slight elevation of the right diaphragm has increased since 11/22/2019. 3. Diffuse sclerotic metastases throughout his skeletal system from his known prostate carcinoma. Echocardiogram 11/28/19: Normal sinus rhythm without intraventricular conduction disturbance. M-mode and two-dimensional echocardiography was performed with pulsed, continuous wave, color flow, and tissue Doppler studies. Mild concentric left ventricular hypertrophy with normal wall motion. Mild to moderately dilated left atrium with grade 1 left ventricle (LV) diastolic dysfunction and current estimated mean left atrial pressure upper limits of normal. Normal right ventricular size and wall motion with Doppler evidence of moderate pulmonary hypertension. Normal right atrial and inferior vena cava (IVC) size and respiratory collapse against an elevated central venous pressure. Mildly dilated aortic root but normal ascending aortic diameter of 3.7 cm. Asymmetrical thickening of the aortic valve, which has three cusps. There seemed to be a localized thickening of the aortic side of the left coronary cusp associated with an eccentric moderate aortic insufficiency jet. Moderate mitral annular calcification with normal leaflet excursion and no posterior systolic buckling but mild mitral insufficiency. Normal-appearing tricuspid valve with moderate insufficiency. No separate intracardiac mass. Small localized posterior pericardial effusion measuring at most 0.8 cm. It may be prudent to consider a transesophageal echocardiogram to further define aortic valve structure and function. MICROBIOLOGY: Blood cultures x 2 sets 11/22/19: NG to date Blood culture x 1 set 11/25/19: NG to date Repeat Bcx x 2 sets 11/30/19: pending UA 11/22/19: Neg UA 11/25/19: Neg Resp panel, COVID: neg Sputum culture: unable to be provided thus far Robeson: Neg Malaria: Neg Babesia, lyme, A. phagocytophil, E. chaffeensis, CMV, EBV, urine legionella, S. pneumoniae, urine strep pneumoniae Ag pending. ASSESSMENT: 74 y/o M with PMH of metastatic prostate adenocarcinoma on chemotherapy, HTN, hx of Lyme disease admitted for further treatment of sy mptomatic anemia, fevers. PLAN: 1. Acute hypoxic respiratory failure 2/2 to flash pulmonary edema s/p IVIG adverse rxn, possible NSTEMI -Elevated troponin 7.56 --> >11, currently on 3 L NC -CT chest above: pulmonary vascular congestion, mild b/l pleural effusion -TTE above -No prior cardiac history -Monitoring I&O, daily wt, intermittently diuresing due to fevers, poor PO intake -Discussed with cardiology, Dr. Barrera. At this time not a candidate for intervention but requires PORSHA to r/o endocarditis. Would benefit being at larger facility in the event his condition improves and coronary intervention can then be performed OR his condition worsens and needs immediate attention. 2. Fevers -Could be 2/2 to PNA vs. other unidentified infection at present time. Hx of Lyme disease. -Echo above, abnormal: It may be prudent to consider a transesophageal echocardiogram to further define aortic valve structure and function. -CTA above. -MRSA neg. C/w zosyn (Day 9) and doxycycline (Day 4) -See resulted "MICROBIOLOGY" above -Discussed with ID, held off on antifungals. -Pending tests include: repeat BCx x 2 sets, babesia, lyme, A. phagocytophil, E. chaffeensis, CMV, EBV, urine legionella, S. pneumoniae, urine strep pneumoniae Ag pending. -Tylenol PRN 2. Community acquired PNA. -Immunocompromised, WBC wnl. Fevers as high as 103.2F over the past 24 hours -Microbiology above, many tests still pending -Sputum cx unable to be provided thus far -C/w zosyn (Day 8), PO doxycycline (Day 3), vancomycin -ID has seen here 3. Acute on chronic anemia cannot r/o 2/2 to ? myelodysplastic process with thrombocytopenia vs. metastatic CA vs. chemotherapy -Occult blood neg, bone marrow biopsy had recently been discussed with patient on recent heme/onc visit due worsening anemia -S/p 4 units PRBC since admission -STFR was high at 31 which shows iron deficiency. -S/p 1 dose of epotin alpha on November 2019 and he is due for his second dose today. Discussed Injectafer and possibly starting epotin alpha 40,000 units -H/H worsened this AM, no s/s bleeding -Will need another transfusion for decreased H/H , daily CBC -Goal > 8 4. Prostate cancer with bone metastasis -Currently undergoing chemotherapy without neutropenia. -Per heme/onc nursing home plan is to resume chemotherapy once stable and consider viejas and Etopside, consider Xofigo for bone involvement . - Please refer to heme/onc notes 5. Acute thrombocytopenia -r/o 2/2 to infection vs. myelodysplastic process with thrombocytopenia vs. metastatic CA vs. chemotherapy -In need of BM biopsy according to heme/onc notes 6. DVT px. -SCD, teds DISPOSITION: Currently inpatient status but transferring to [facility] ICU, Dr. Yvon Pino for further care/treatment. TIME SPENT ON DISCHARGE: Greater than 30 minutes. Vital Signs/I&Os Vital Signs Date Time Temp Pulse Resp B/P (MAP) Pulse Ox O2 Delivery O2 Flow Rate FiO2 11/30/19 12:00 3.0 11/30/19 11:50 90 120/80 11/30/19 11:41 99.0 18 99 Nasal Cannula I&O- Last 24 Hours up to 6 AM 11/30/19 06:00 Intake Total 3550 ml Output Total 1800 ml Balance 1750 ml Laboratory Data Labs 24H Laboratory Tests 2 11/29/19 18:24: Monoscreen NEGATIVE 11/30/19 00:20: Blood Gas Bicarbonate Standard 15.7L, Arterial Blood pH 7.302L, Arterial Blood Partial Pressure CO2 29.5L, Arterial Blood Partial Pressure O2 231.3H, Arterial Blood Total CO2 15.2L, Arterial Blood HCO3 14.3L, Arterial Blood Base Excess - 11.0L, Arterial Blood Oxygen Saturation 99.8H 11/30/19 00:32: Immature Granulocyte % (Auto) , Neutrophils (%) (Auto) , Nucleated Red Blood Cells % (auto) 4.6H, Neutrophils 38, Band Neutrophils 5, Lymphocytes (Manual) 44, Eosinophils (Manual) 1, Metamyelocytes 5H, Myelocytes 6H, Blastocytes 1H, Polychromasia 1+, Anisocytosis 1+, Platelet Estimate DECREASED, Erythrocyte Sedimentation Rate 127H, Anion Gap 16, Glomerular Filtration Rate > 60.0, Lactic Acid Level 9.9*H, Calcium Level 8.0L, Total Bilirubin 0.3, Aspartate Amino Transf (AST/SGOT) 76H, Alanine Aminotransferase (ALT/SGPT) 57, Alkaline Phosphatase 497H, Total Creatine Kinase 65, Creatine Kinase MB < 1.0, Creatine Kinase MB Relative Index 1.54, Troponin I < 0.02, C-Reactive Protein, Quantitative 27.40H, Total Protein 6.4, Albumin 2.1L, Albumin/Globulin Ratio 0.5 11/30/19 04:20: Immature Granulocyte % (Auto) 15.6H, Neutrophils (%) (Auto) 65.9, Nucleated Red Blood Cells % (auto) 1.5H, Anion Gap 9, Glomerular Filtration Rate > 60.0, Calcium Level 7.0L, Total Bilirubin 0.5#, Aspartate Amino Transf (AST/SGOT) 80H, Alanine Aminotransferase (ALT/SGPT) 53, Alkaline Phosphatase 457H, Total Creatine Kinase 216#, Creatine Kinase MB 16.4H, Creatine Kinase MB Relative Index 7.59H, Troponin I 7.56#*H, C-Reactive Protein, Quantitative 22.80H, Total Protein 5.7L, Albumin 1.8L, Albumin/Globulin Ratio 0.5, Lymphocytes (%) (Auto) 12.6L, Monocytes (%) (Auto) 4.9, Eosinophils (%) (Auto) 0.5, Basophils (%) (Auto) 0.5, Neutrophils # (Auto) 4.8, Lymphocytes # (Auto) 0.9L, Monocytes # (Auto) 0.4, Eosinophils # (Auto) 0.0, Basophils # (Auto) 0.0 11/30/19 04:52: Lactic Acid Followup at 4 Hours 1.3 11/30/19 09:02: Troponin I 11.60#*H 11/30/19 12:10: Troponin I 9.72*H, Total Creatine Kinase 307, Creatine Kinase MB 22.7H, Creatine Kinase MB Relative Index 7.39H CBC/BMP Laboratory Tests 11/30/19 00:32 11/30/19 04:20 Microbiology Microbiology 11/30/19 Malaria Smear (RONNI) - Final, Complete 11/30/19 Blood Culture, Received Pending 11/30/19 Blood Culture, Received Pending 11/26/19 Stool Occult Blood (RONNI) - Final, Complete 11/25/19 Blood Culture - Final, Complete NO GROWTH AFTER 5 DAYS 11/22/19 Respiratory Virus Panel (PCR) (RONNI) - Final, Complete 11/22/19 Blood Culture - Final, Complete NO GROWTH AFTER 5 DAYS 11/22/19 Blood Culture - Final, Complete NO GROWTH AFTER 5 DAYS Discharge Medications Scheduled Aspirin (Aspirin EC) 81 Mg Tablet.dr, 81 MG PO DAILY Atorvastatin Calcium (Atorvastatin Calcium) 20 Mg Tablet, 80 MG PO DAILY Doxycycline Hyclate (Doxycycline Hyclate) 100 Mg Tablet, 100 MG PO BID L.acidoph/L.bulg/B.bif/S.therm (Lora-Bid Caplet) 1 Each Tablet, 1 EA PO BIDWM Methyl Salicylate/Menthol (Muscle Rub Cream) 85 Gm Cream..g., 0 DOSE TOP QID Metoprolol Tartrate (Metoprolol Tartrate) 25 Mg Tablet, 12.5 MG PO Q6H Pantoprazole Sodium (Protonix) 40 Mg Granpkt.dr, 40 MG PO DAILY Piperacillin Sodium/Tazobactam (Piperacil-Tazobact 3.375 gm Vl) 3.375 Gm Vial, 1 INJ IV Q6H Scheduled PRN Acetaminophen (Acetaminophen) 325 Mg Tablet, 650 MG PO Q4HP PRN for fever Albuterol Sulfate (Albuterol Sulfate) 2.5 Mg/0.5 Ml Vial.neb, 2.5 MG INH Q2HP PRN for SOB/WHEEZING Ondansetron HCl/Pf (Ondansetron HCl 4 mg/2 ml Vial) 4 Mg/2 Ml Vial, 4 MG IV Q4HP PRN for NAUSEA OR VOMITING Sennosides/Docusate Sodium (Senna Plus Tablet) 1 Each Tablet, 2 TAB PO BIDP PRN for CONSTIPATION Trazodone HCl (Trazodone HCl) 50 Mg Tablet, 25 MG PO QHSP PRN for INSOMNIA [Ketorolac Tromethamine] 30 MG/ML INJ, 15 MG IV Q8HP PRN for FEVER Allergies Coded Allergies: No Known Allergies (Unverified , 08/09/18) Charisse Dimas MD Nov 30, 2019 15:30
[2019-11-30 16:08] LABS: BODY FLUID CULTURE Not indicated. (.); LEGIONELLA ANTIGEN URINE Negative (Negative); ORGANISM ID Not indicated. (.); SPECIMEN SOURCE Urine (.); URINE STREP PNEUMONIAE ANTIGEN Negative (Negative)
--- NOTE | 2019-11-30 16:59 | ECGEPIP ---
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 NONSPECIFIC ST & T-WAVE ABNORMALITY Increased heart rate, rhythm change, new ST elevation, and new anteroseptal and i inferior wall Q waves compared with 11/28/2019. Clinical correlation advised. Electronically Signed on 11-30-2019 16:58:54 EDT by Diego Ryder
--- NOTE | 2019-11-30 17:01 | ECGEPIP ---
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 Decreased heart rate, no longer in atrial fibrillation, and resolution of ST e elevation compared with 11/30/2019 at 0 37 hours. Electronically Signed on 11-30-2019 17:01:20 EDT by Diego Ryder
--- NOTE | 2019-11-30 17:02 | ECGEPIP ---
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 POSSIBLE INFERIOR MYOCARDIAL INFARCTION, Age indeterminate. ABNORMAL RHYTHM ECG Electronically Signed on 11-30-2019 17:02:10 EDT by Diego Ryder
--- NOTE | 2019-11-30 17:05 | ECGEPIP ---
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 No PACs or PVCs compared with 11/30/2019 at 5:23 AM. Electronically Signed on 11-30-2019 17:05:09 EDT by Diego Ryder
[2019-11-30 19:10] LABS: CK-MB VALUE MASS 17.1 NG/ML (<3.6); MB/CK RELATIVE INDEX 6.31 (< OR =4); TROPONIN I 6.58 NG/ML (< 0.10)
[2019-12-01 13:07] LABS: HAPTOGLOBIN 704 mg/dL (34-355)
== END 2019-11-30 18:36 | disposition short-term general hospital (02) | DRG 811 ==
LOC: M ED 12:11 → M ED INP 15:43 → ENRESERV 19:55 → M PCU 20:38 → M MSPAV 11-24 16:47 → M ICU 11-30 00:45
PROVIDERS: ADMIT General Practice; ATTEND Internal Medicine
PROC: 30233N1 Transfusion of Nonautologous Red Blood Cells into Peripheral Vein, Percutaneous Approach (ICD-10-PCS; principal; 2019-11-23)
DX: D64.81 Anemia due to antineoplastic chemotherapy (principal); J18.9 Pneumonia, unspecified organism; I21.4 Non-ST elevation (NSTEMI) myocardial infarction; J96.01 Acute respiratory failure with hypoxia; C79.51 Secondary malignant neoplasm of bone; E87.2 Acidosis; E87.1 Hypo-osmolality and hyponatremia; D80.1 Nonfamilial hypogammaglobulinemia; I16.0 Hypertensive urgency; D46.9 Myelodysplastic syndrome, unspecified; D69.59 Other secondary thrombocytopenia; I10 Essential (primary) hypertension; R50.9 Fever, unspecified; C61 Malignant neoplasm of prostate; R53.1 Weakness; Z98.41 Cataract extraction status, right eye; Z98.42 Cataract extraction status, left eye; Z79.52 Long term (current) use of systemic steroids; Z79.899 Other long term (current) drug therapy; Z11.59 Encounter for screening for other viral diseases

== ENCOUNTER 2019-12-14 15:30 | Inpatient (IN) | payer MEDICARE ==
[~2019-12-14 15:30] MED LIST changes: +ACET1TAB55 PO; +ALB2.5NEB INH; +ASPI81TAEC PO; +ATOR1TAB21 PO; +DOXY100T PO; +Ketorolac Tromethamine IV; +METO1TAB87 PO; +MUSCCRE9 TOP; +ONDA4INJ4 IV; +PIPE3INJ6 IV; +PROTPAK PO; +RISATAB3 PO; +SENN-52 PO; +TRAZ-252 PO
[2019-12-14] MEDS ORDERED: VANCOMYCIN 1000MG/20ML VIAL As Ordered ONE (22:15)
[2019-12-14] MEDS ORDERED: VANCOMYCIN 1000MG/20ML VIAL ONE (22:15)
[2019-12-15] MEDS ORDERED: ZOSYN 3.375GM VIAL (J2543) As Ordered ONE ×2 (00:52→06:23)
[2019-12-15] MEDS ORDERED: VANCOMYCIN 1000MG/20ML VIAL As Ordered ONE (05:28)
[2020-01-15 11:10] LABS: INR 1.3; PROTHROMBIN TIME 16.5 SECONDS (11.8-14.0)
[2020-01-15 11:25] LABS: HEMATOCRIT 23.2 % (42.0-52.0); HEMOGLOBIN 7.3 g/dl (13.5-17.5); MEAN CORPUSCULAR HEMOGLOBIN 29.6 pg (27.0-33.0); MEAN CORPUSCULAR HGB CONC 31.5 g/dl (32.0-36.5); MEAN CORPUSCULAR VOLUME 93.9 fl (80.0-96.0); RED BLOOD COUNT 2.47 10^6/uL (4.30-6.10); WHITE BLOOD COUNT 16.3 10^3/uL (4.0-10.0)
[2020-01-15 11:32] LABS: PLATELET COUNT, AUTOMATED 52 10^3/uL (150-450)
[2020-01-15 11:34] LABS: ANISOCYTOSIS 3+; HYPOCHROMASIA 1+; LYMPHOCYTES 16 % (16-44); MONOCYTES 14 % (0-5); MYELOCYTES 4 % (0-0); NEUTROPHILS 40 % (28-66); POLYCHROMASIA 1+
[2020-01-15 11:35] LABS: PLATELET ESTIMATE DECREASED (NORMAL)
== END 2019-12-15 16:15 | disposition home or self-care (01) | DRG 812 ==
LOC: M ED 15:30 → M MSPAV 17:00 → M ED 12-16 15:30
PROVIDERS: ADMIT General Practice; ATTEND General Practice
PROC: 30233N1 Transfusion of Nonautologous Red Blood Cells into Peripheral Vein, Percutaneous Approach (ICD-10-PCS; principal; 2019-12-14)
DX: D64.9 Anemia, unspecified (principal); C79.51 Secondary malignant neoplasm of bone; C61 Malignant neoplasm of prostate; I25.2 Old myocardial infarction

== ENCOUNTER 2020-01-11 10:55 | Inpatient (IN) | payer MEDICARE ==
[2020-01-11] VITALS (10 sets, daily range): BP systolic 101–135; BP diastolic 58–76
[~2020-01-11] VITALS: Ht 172.7 cm; Wt 72.6 kg
[2020-01-11 11:43] LABS: MEAN CORPUSCULAR HEMOGLOBIN 29.2 pg (27.0-33.0); MEAN CORPUSCULAR HGB CONC 31.7 g/dl (32.0-36.5); RED BLOOD COUNT 2.26 10^6/uL (4.30-6.10); WHITE BLOOD COUNT 10.7 10^3/uL (4.0-10.0)
[2020-01-11 11:49] LABS: HEMATOCRIT 20.8 % (42.0-52.0); PLATELET COUNT, AUTOMATED 51 10^3/uL (150-450)
[2020-01-11 11:50] LABS: HEMOGLOBIN 6.5 g/dl (13.5-17.5)
[2020-01-11] MEDS ORDERED: E-Z-GAS II EFFERVESCENT PACKET (SODIUM BICARB./CITRIC ACID/SIMETHICONE) As Ordered ONE (11:54)
[2020-01-11] MEDS ORDERED: E-Z-PAQUE 96% w/w SUSP 176GM BTL As Ordered ONE (11:54)
[2020-01-11] MEDS ORDERED: E-Z-HD 98% w/w 340GM SUSP BTL As Ordered ONE (11:55)
--- NOTE | 2020-01-11 12:17 | REPVR ---
PROCEDURE INFORMATION: Exam: XR Chest, 1 View Exam date and time: 01/11/2020 11:25 AM Age: 74 years old Clinical indication: Other: AMS; Additional info: Altered mental status TECHNIQUE: Imaging protocol: XR of the chest Views: 1 view. COMPARISON: CR CHEST, CHEST AP 40" VG 11/30/2019 12:28 AM FINDINGS: Lungs: Unremarkable. No consolidation. Pleural space: Unremarkable. No pleural effusion. No pneumothorax. Heart/Mediastinum: Stable mild prominence of the cardiac silhouette. Calcification of the thoracic aorta. Diaphragm: Stable mild elevation of the right hemidiaphragm. Bones/joints: Degenerative change of the spine. Redemonstration of extensive sclerotic osseous metastases. IMPRESSION: No acute cardiopulmonary abnormality. Electronically signed by: Luisa Wilson On 01/11/2020 12:16:53 PM
[2020-01-11 12:18] LABS: ALBUMIN 1.8 GM/DL (3.2-5.2); ALT/SGPT 51 U/L (12-78); AMYLASE 28 U/L (25-115); BILIRUBIN,DIRECT 0.4 MG/DL (0.0-0.2); BILIRUBIN,TOTAL 0.7 MG/DL (0.2-1.0); BLOOD UREA NITROGEN 7 MG/DL (7-18); CALCIUM LEVEL 7.3 MG/DL (8.8-10.2); CARBON DIOXIDE LEVEL 25 MEQ/L (21-32); CHLORIDE LEVEL 102 MEQ/L (98-107); CK-MB VALUE MASS < 1.0 NG/ML (<3.6); CPK CREATINE PHOSPHOKINASE 40 U/L (39-308); CREATININE FOR GFR 0.39 MG/DL (0.70-1.30); GLOMERULAR FILTRATION RATE > 60.0 (>42); GLUCOSE, FASTING 101 MG/DL (70-100); LIPASE 108 U/L (73-393); POTASSIUM SERUM 3.2 MEQ/L (3.5-5.1); SODIUM LEVEL 137 MEQ/L (136-145); TOTAL PROTEIN 5.6 GM/DL (6.4-8.2); TROPONIN I < 0.02 NG/ML (< 0.10)
[2020-01-11 12:28] LABS: ANISOCYTOSIS 1+; ATYPICAL LYMPH 1 % (0-5); EOSINOPHILS 2 % (0-3); LYMPHOCYTES 13 % (16-44); METAMYELOCYTES 7 % (0-0); MONOCYTES 9 % (0-5); MYELOCYTES 6 % (0-0); NEUTROPHILS 57 % (28-66); PLATELET ESTIMATE MARKED DECREASE (NORMAL); POLYCHROMASIA 1+
[2020-01-11] MEDS ORDERED: METO1TAB87 PO (13:27)
[2020-01-11] MEDS ORDERED: ATOR40TA75 PO (13:27)
[2020-01-11] MEDS ORDERED: FUROSEMIDE 40MG/4ML VIAL (J1940) IV ONE (14:30)
--- NOTE | 2020-01-11 16:12 | HPEPDOC ---
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 Source: Patient, RN/MD History of Present Illness 74 year old male with PH of Chronic anemia, thrombocytopenia, metastatic prostate cancer, paroxysmal Afib, hypertension, recent NTEMI due to demand ischemia in november 2019 presented to the ED with 2 months history o progressive weakness and tiredness and sob on exertion. Now it has reached the point where he can hardly walk to the bathroom. He has also very poor appetite and has only been drinking ensure for the past 2 weeks. Eating any solid food makes him gag. He was recently admitted here in November for Right lower lobe pneumonia, with high fevers, low immunoglobulins and during that time had a transfusion reaction to IVIG with flash pulmonary edema and developed afib and had NSTEMI for which he was transferred to [facility] where it was felt his NSTEMI was due to demand ischemia and no cardiac intervention was done. During that admission also he was very anemic with hh at 6.0. Work up in the ED again showed that his hemoglobin has dropped to 6.8 with no signs of bleeding . he complained of dizziness and light headedness while standing up. He is being admitted for symptomatic anemia. Patient also expressed the wish to get a feeding tube. Home Medications Scheduled Atorvastatin Calcium (Atorvastatin Calcium) 40 Mg Tablet, 40 MG PO QHS, (Reported) Metoprolol Tartrate (Metoprolol Tartrate) 25 Mg Tablet, 12.5 MG PO BID, (Reported) Allergies Coded Allergies: IgA less than or equal to 50 mcg/mL (Verified Adverse Reaction, Severe, dev rigors, temp 103.8, severe sob, hr 150's, desat to 70's , 11/30/19) immune globulin,gamma (IgG) human (Verified Adverse Reaction, Severe, dev rigors, temp 103.8, severe sob, hr 150's, desat to 70's , 11/30/19) proline (Verified Adverse Reaction, Severe, dev rigors, temp 103.8, severe sob, hr 150's, desat to 70's , 11/30/19) Past Medical History Medical History Chronic Anemia Thrombocytopenia Recent Atrial fibrillation in November Not anticoagulated due to thrombocytopenia and anemia. Recent NSTEMI in the setting of pneumonia and Afib in November 2019. Prostate cancer with metastasis. Hypertension. Lyme disease. Surgical History Bilateral cataract removal, TRUS biopsy 2017. Family History Father at 93 of old age, unknown medical issues. Mother of congestive heart failure (CHF) in her 70s. Diagnosed also with cerebral artery occlusion with cerebral infarction. The patient has one brother that of leukemia, one son of coronary artery disease, myocardial infarction ([place]) at the age of 44, another brother with pancreatic cancer. Social History * Smoker: Denies Alcohol: Denies Drugs: denies A-FIB/CHADSVASC A-FIB History Current/History of A-Fib/PAF?: Yes Current PO Anticoag Therapy: No Review of Systems Constitutional: Reports: Weakness, Fatigue; Denies: Chills, Fever, Night Sweats Eyes: Denies: Pain, Vision change ENT: Denies: Head Aches, Ear Pain, Dysphagia Skin: Denies: Rash, Lesions, Breakdown Pulmonary: Denies: Dyspnea, Cough Cardiovascular: Denies: Chest Pain, Palpitations, Orthopnea, Paroxysmal Noc. Dyspnea, Lt Headedness Gastrointestinal: Denies: Nausea, Vomiting, Abdominal Pain, Diarrhea Genitourinary: Reports: Retention Hematologic: Denies: Bruising, Bleeding Excessively Physical Examination General Exam: Positive: Alert, Cooperative, No Acute Distress Eye Exam: Positive: PERRLA, Conjunctiva & lids normal, EOMI; Negative: Sclera icteric ENT Exam: Positive: Atraumatic, Mucous membr. moist/pink, Pharynx Normal Neck Exam: Positive: Supple; Negative: JVD, thyromegaly Chest Exam: Positive: Clear to auscultation, Normal air movement Heart Exam: Positive: Rate Normal, Regular Rhythm, Normal S1, Normal S2; Negative: Murmurs, Rubs Abdomen Exam: Positive: Normal bowel sounds, Soft; Negative: Tenderness, Hepatospenomegaly Extremity Exam: Positive: Normal pulses; Negative: Clubbing, Cyanosis, Edema Skin Exam: Positive: Nl turgor and temperature; Negative: Breakdown, Lesion Neuro Exam: Positive: Normal Speech, Strength at 5/5 X4 ext, Normal Tone Vital Signs Vital Signs Date Time Temp Pulse Resp B/P (MAP) Pulse Ox O2 Delivery O2 Flow Rate FiO2 01/11/20 14:05 99.4 91 18 132/63 96 Room Air Laboratory Data Labs 24H Laboratory Tests 2 01/11/20 11:00: Immature Granulocyte % (Auto) , Neutrophils (%) (Auto) , Nucleated Red Blood Cells % (auto) 3.9H, Neutrophils 57, Band Neutrophils 5, Lymphocytes (Manual) 13L, Monocytes (Manual) 9H, Eosinophils (Manual) 2, Metamyelocytes 7H, Myelocytes 6H, Atypical Lymphocytes 1, Polychromasia 1+, Anisocytosis 1+, Platelet Estimate MARKED DECREASE, Immature Platelet Fraction 5.3, Anion Gap 10, Glomerular Filtration Rate > 60.0, Calcium Level 7.3L, Total Bilirubin 0.7, Direct Bilirubin 0.4H, Aspartate Amino Transf (AST/SGOT) 71H, Alanine Aminotransferase (ALT/SGPT) 51, Alkaline Phosphatase 881H, Total Creatine Kinase 40, Creatine Kinase MB < 1.0, Creatine Kinase MB Relative Index 2.50, Troponin I < 0.02, Total Protein 5.6L, Albumin 1.8L, Albumin/Globulin Ratio 0.5, Amylase Level 28, Lipase 108, Thyroid Stimulating Hormone (TSH) 2.260 CBC/BMP Laboratory Tests 01/11/20 11:00 Assessment/Plan 74 year old male with PH of Chronic anemia, thrombocytopenia, metastatic prostate cancer, paroxysmal Afib, hypertension, recent NTEMI due to demand ischemia in november 2019 presented to the ED with 2 months history o progressive weakness and tiredness and sob on exertion. Now it has reached the point where he can hardly walk to the bathroom. He has also very poor appetite and has only been drinking ensure for the past 2 weeks. Eating any solid food makes him gag. He was recently admitted here in November for Right lower lobe pneumonia, with high fevers, low immunoglobulins and during that time had a transfusion reaction to IVIG with flash pulmonary edema and developed afib and had NSTEMI for which he was transferred to [facility] where it was felt his NSTEMI was due to demand ischemia and no cardiac intervention was done. During that admission also he was very anemic with hh at 6.0. Work up in the ED again showed that his hemoglobin has dropped to 6.8 with no signs of bleeding . he complained of dizziness and light headedness while standing up. He is being admitted for symptomatic anemia. Acute on chronic anemia r/o myelodysplastic process with thrombocytopenia vs. bone marrow infiltration by metastatic CA His iron profile from October was nonconclusive with low TIBC because of element of anemia of chronic disease. His STFR was high at 31 which shows iron deficiency. He received 3 doses of erythropoietin alpha in november 2019. Occult blood neg, bone marrow biopsy had recently been discussed with patient on recent heme/onc visit due worsening anemia Ferritin very high will transfuse PRBC Prostate cancer with bone metastasis last chemotherapy in August 2019 Patient self catheterizes about 6/ day Thrombocytopenia Possibly myelodysplastic process vs extensive bony metastasis. Hypertension continue metoprolol H/o Paroxysmal Atrial fibrillation now in sinus rhythm continue metoprolol H/O NSTEMI due to demand ischemia in the setting of infection, acute transfusion reaction to IVIG with flash pulmonary edema and new Afib. in november 2019 continue statin and betablocker was transferred to [facility] no intervention was done. DVT px. SCD, teds Plan / VTE VTE Prophylaxis Ordered?: Yes KATIE GONZALEZ MD Jan 11, 2020 15:17
[2020-01-11] MEDS: ONDANSETRON 4 MG ORAL DISINTEGRATING TAB SL SCH (17:17)
[2020-01-11] MEDS: METOPROLOL TART 12.5 MG PER 1/2 TAB PO SCH (20:10)
[2020-01-11] MEDS: ATORVASTATIN 20 MG TAB PO SCH (20:10)
[2020-01-12] VITALS (7 sets, daily range): BP systolic 102–126; BP diastolic 53–76
[2020-01-12] MEDS: ONDANSETRON 4 MG ORAL DISINTEGRATING TAB SL SCH ×4 (05:54→18:00)
[2020-01-12 06:44] LABS: HEMATOCRIT 24.2 % (42.0-52.0); MEAN CORPUSCULAR HEMOGLOBIN 29.7 pg (27.0-33.0); MEAN CORPUSCULAR HGB CONC 33.1 g/dl (32.0-36.5); RED BLOOD COUNT 2.69 10^6/uL (4.30-6.10)
[2020-01-12 06:51] LABS: PLATELET COUNT, AUTOMATED 53 10^3/uL (150-450)
[2020-01-12 07:03] LABS: BLOOD UREA NITROGEN 6 MG/DL (7-18); CALCIUM LEVEL 6.9 MG/DL (8.8-10.2); CARBON DIOXIDE LEVEL 25 MEQ/L (21-32); CHLORIDE LEVEL 103 MEQ/L (98-107); CREATININE FOR GFR 0.54 MG/DL (0.70-1.30); GLOMERULAR FILTRATION RATE > 60.0 (>42); GLUCOSE, FASTING 111 MG/DL (70-100); SODIUM LEVEL 138 MEQ/L (136-145)
[2020-01-12 07:33] LABS: ATYPICAL LYMPH 3 % (0-5); EOSINOPHILS 2 % (0-3); LYMPHOCYTES 23 % (16-44); METAMYELOCYTES 10 % (0-0); MONOCYTES 7 % (0-5); MYELOCYTES 4 % (0-0); NEUTROPHILS 40 % (28-66); PLATELET ESTIMATE DECREASED (NORMAL); POLYCHROMASIA 1+; PROMYELOCYTES 2 % (0-0)
[2020-01-12 07:34] LABS: ANISOCYTOSIS 1+; HYPOCHROMASIA 1+
[2020-01-12] MEDS: METOPROLOL TART 12.5 MG PER 1/2 TAB PO SCH ×2 (10:13→21:08)
[2020-01-12] MEDS ORDERED: FUROSEMIDE 40MG/4ML VIAL (J1940) IV ONE (11:00)
--- NOTE | 2020-01-12 11:52 | IPNPDOC ---
Text Note Date of Service The patient was seen on 01/12/20. NOTE Subjective: Feels better today. Able to swallow some solids for breakfast this morning. No fever or chills. will give 1 more unit of PRBC. Physical Exam: Vitals : As below. General Exam: Positive: Alert, Cooperative, No Acute Distress Eye Exam: Positive: PERRLA, Conjunctiva & lids normal, EOMI; Negative: Sclera icteric ENT Exam: Positive: Atraumatic, Mucous membr. moist/pink, Pharynx Normal Neck Exam: Positive: Supple; Negative: JVD, thyromegaly Chest Exam: Positive: Clear to auscultation, Normal air movement Heart Exam: Positive: Rate Normal, Regular Rhythm, Normal S1, Normal S2; Negative: Murmurs, Rubs Abdomen Exam: Positive: Normal bowel sounds, Soft; Negative: Tenderness, Hepatosplenomegaly Extremity Exam: Positive: Normal pulses; Negative: Clubbing, Cyanosis, Edema Skin Exam: Positive: Nl turgor and temperature; Negative: Breakdown, Lesion Neuro Exam: Positive: Normal Speech, Strength at 5/5 X4 ext, Normal Tone 74 year old male with PH of Chronic anemia, thrombocytopenia, metastatic prostate cancer, paroxysmal Afib, hypertension, recent NTEMI due to demand ischemia in november 2019 presented to the ED with 2 months history o progressive weakness and tiredness and sob on exertion. Now it has reached the point where he can hardly walk to the bathroom. He has also very poor appetite and has only been drinking ensure for the past 2 weeks. Eating any solid food makes him gag. He was recently admitted here in November for Right lower lobe pneumonia, with high fevers, low immunoglobulins and during that time had a transfusion reaction to IVIG with flash pulmonary edema and developed afib and had NSTEMI for which he was transferred to [facility] where it was felt his NSTEMI was due to demand ischemia and no cardiac intervention was done. During that admission also he was very anemic with hh at 6.0. Work up in the ED again showed that his hemoglobin has dropped to 6.8 with no signs of bleeding . he complained of dizziness and light headedness while standing up. He is being admitted for symptomatic anemia. Dysphagia will get MRI head to rule out mets. cookie swallow done. result pending. Clinically does not seem to have any aspiration. He was able to eat some solids this morning. Acute on chronic anemia r/o myelodysplastic process with thrombocytopenia vs. bone marrow infiltration by metastatic CA causing decreased marrow activity His iron profile from October was nonconclusive with low TIBC because of element of anemia of chronic disease. His STFR was high at 31 which shows iron deficiency. He received 3 doses of erythropoietin alpha in november 2019. Occult blood neg, bone marrow biopsy had recently been discussed with patient on recent heme/onc visit due worsening anemia Ferritin very high will transfuse PRBC Prostate cancer with bone metastasis last chemotherapy in August 2019 Patient self catheterizes about 6/ day Thrombocytopenia Possibly myelodysplastic process vs extensive bony metastasis. Hypertension continue metoprolol H/o Paroxysmal Atrial fibrillation now in sinus rhythm continue metoprolol H/O NSTEMI due to demand ischemia in the setting of infection, reaction to IVIG with flash pulmonary edema and Afib. in november 2019 continue statin and betablocker was transferred to [facility] no intervention . No intervention was done there. DVT px. SCD, teds VS,Fishbone, I+O VS, Fishbone, I+O Laboratory Tests 01/12/20 05:50 Vital Signs Date Time Temp Pulse Resp B/P (MAP) Pulse Ox O2 Delivery O2 Flow Rate FiO2 01/12/20 10:13 86 117/68 01/12/20 06:00 98.7 18 95 Room Air I&O- Last 24 Hours up to 6 AM 01/12/20 06:00 Intake Total 1732 ml Output Total 1800 ml Balance -68 ml KATIE GONZALEZ MD Jan 12, 2020 11:52
[2020-01-12] MEDS ORDERED: POTASSIUM CHLORIDE 10 MEQ SR TABLET PO ONE (12:00)
--- NOTE | 2020-01-12 16:42 | REPVR ---
PROCEDURE INFORMATION: Exam: MR Head Without Contrast Exam date and time: 01/12/2020 3:48 PM Age: 74 years old Clinical indication: Other: New dysphagia, h/o prostate cancer with mets. TECHNIQUE: Imaging protocol: MR of the head without contrast. COMPARISON: No relevant prior studies available. FINDINGS: Brain: The brain demonstrates generalized volume loss. No significant white matter disease for the patient's age. No definite, acute infarct on the diffusion-weighted imaging. The diffusion sequences are motion degraded. Suspect diffuse intracranial pachymeningeal thickening, likely related to osseous metastatic disease. Predominantly T1 and T2 isointense left frontal, temporal and parietal signal abnormality measuring up to 12 mm in thickness, image 15 series 501. There is correlative heterogeneous signal on the diffusion sequence. This could reflect hematoma and/or extra-axial tumor (predominantly epidural tumor). No intracranial mass effect. Ventricles: Normal. No ventriculomegaly. Bones/joints: Diffusely diminished signal intensity of the calvarium and upper cervical spine on the T1 weighted imaging in keeping with osseous metastatic disease. Sinuses: Retention cyst or polyp in the left maxillary sinus. Trace ethmoid sinus mucosal thickening. Mastoid air cells: Patchy, nonspecific bilateral mastoid effusions. Orbits: Thinning of the lenses of the globes consistent with prior lens surgery. Soft tissues: Unremarkable. IMPRESSION: 1. Images are mildly motion degraded. 2. No evidence of acute infarct. 3. Diffuse osseous metastatic disease. 4. Abnormal signal intensity in left frontotemporoparietal extra-axial space measuring up to 12 mm in thickness may reflect hematoma and/or extra-axial tumor. Recommend CT head correlation. 5. If the patient is a candidate, postcontrast MRI sequences of the brain are also suggested for further evaluation of the dura and epidural spaces. Electronically signed by: Kayla Delcid On 01/12/2020 16:41:37 PM
--- NOTE | 2020-01-12 17:42 | REPVR ---
PROCEDURE INFORMATION: Exam: CT Head Without Contrast Exam date and time: 01/12/2020 5:19 PM Age: 74 years old Clinical indication: Abnormal findings; Abnormal radiologic findings of head/skull; Intracranial mass / space-occupying lesion; Additional info: Abnormal mri ? bleed TECHNIQUE: Imaging protocol: Computed tomography of the head without contrast. Radiation optimization: All CT scans at this facility use at least one of these dose optimization techniques: automated exposure control; mA and/or kV adjustment per patient size (includes targeted exams where dose is matched to clinical indication); or iterative reconstruction. 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 Permeative lucency in the inner table of the calvarium with periosteal elevation best appreciated on the coronal reconstruction such as image 16 of series 203. There is regional intracranial left frontotemporal epidural mass measuring to 10 mm in thickness on coronal image 15 of series 203. No hyperdense hemorrhage. No intracranial mass effect. The brain demonstrates generalized volume loss. No evolving transcortical infarction identified. Ventricles: No ventriculomegaly. Bones/joints: With specific attention to the jugular foramina, no significant osseous narrowing related to bony metastatic disease. No soft tissue masses identified just below skull base. Sinuses: Visualized sinuses are unremarkable. No fluid levels. Mastoid air cells: Patchy bilateral mastoid effusions again demonstrated. Orbits: Soft tissue density tumor in the superolateral extraconal space of the left orbit measuring 5-6 mm in thickness. This is adjacent to an area of orbital wall osseous metastatic disease. IMPRESSION: 1. No hyperdense intracranial hemorrhage. 2. Left frontotemporal extra-axial soft tissue attenuation most likely reflects epidural tumor. 3. 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 Electronically signed by: Kayla Delcid On 01/12/2020 17:42:13 PM
[2020-01-12] MEDS: ATORVASTATIN 20 MG TAB PO SCH (21:07)
[2020-01-13] MEDS: ONDANSETRON 4 MG ORAL DISINTEGRATING TAB SL SCH ×2 (05:44)
[2020-01-13 06:00] VITALS: BP 130/80
[2020-01-13 07:25] LABS: HEMATOCRIT 28.3 % (42.0-52.0); HEMOGLOBIN 9.2 g/dl (13.5-17.5); MEAN CORPUSCULAR HEMOGLOBIN 29.6 pg (27.0-33.0); MEAN CORPUSCULAR HGB CONC 32.5 g/dl (32.0-36.5); RED BLOOD COUNT 3.11 10^6/uL (4.30-6.10); WHITE BLOOD COUNT 13.1 10^3/uL (4.0-10.0)
[2020-01-13 07:26] LABS: PLATELET COUNT, AUTOMATED 58 10^3/uL (150-450)
[2020-01-13 07:49] LABS: BLOOD UREA NITROGEN 7 MG/DL (7-18); CALCIUM LEVEL 7.2 MG/DL (8.8-10.2); CARBON DIOXIDE LEVEL 28 MEQ/L (21-32); CHLORIDE LEVEL 102 MEQ/L (98-107); CREATININE FOR GFR 0.43 MG/DL (0.70-1.30); GLOMERULAR FILTRATION RATE > 60.0 (>42); GLUCOSE, FASTING 88 MG/DL (70-100); POTASSIUM SERUM 3.5 MEQ/L (3.5-5.1); SODIUM LEVEL 137 MEQ/L (136-145)
[2020-01-13 08:14] LABS: ATYPICAL LYMPH 2 % (0-5); BASOPHILS 2 % (0-1); EOSINOPHILS 5 % (0-3); GIANT PLATELETS 1+; LYMPHOCYTES 16 % (16-44); METAMYELOCYTES 11 % (0-0); MONOCYTES 3 % (0-5); MYELOCYTES 4 % (0-0); NEUTROPHILS 45 % (28-66); PLATELET ESTIMATE DECREASED (NORMAL); PROMYELOCYTES 2 % (0-0)
[2020-01-13 08:15] LABS: ANISOCYTOSIS 2+; HYPOCHROMASIA 1+
[2020-01-13 09:12] VITALS: BP 117/69
[2020-01-13] MEDS: METOPROLOL TART 12.5 MG PER 1/2 TAB PO SCH (09:12)
[2020-01-13] MEDS ORDERED: ONDA4TAB6 SL (10:44)
--- NOTE | 2020-01-13 16:09 | DS.PDOC ---
Discharge Summary General Date of Admission Jan 11, 2020 at 14:23 Date of Discharge 01/13/20 Discharge Summary PROCEDURES PERFORMED DURING STAY: [None]. DISCHARGE DIAGNOSES: Dysphagia Acute on chronic Anemia possibly due to bone marrow involvement by extensive mets Prostate cancer with mets New Left fronto temporal Epidural tumor SECONDARY DIAGNOSIS: Chronic Anemia Thrombocytopenia Recent Atrial fibrillation in November Not anticoagulated due to thrombocytopenia and anemia. Recent NSTEMI in the setting of pneumonia and Afib, flash pulmanary edema, transfusion reaction to IVIG in November 2019. Prostate cancer with metastasis. Hypertension. H/o Lyme disease COMPLICATIONS/CHIEF COMPLAINT: Prostate Cancer Metastatic To Bone Anemia. HOSPITAL COURSE: 74 year old male with PH of Chronic anemia, thrombocytopenia, metastatic prostate cancer, paroxysmal Afib, hypertension, recent NTEMI due to demand ischemia in november 2019 presented to the ED with 2 months history o progressive weakness and tiredness and sob on exertion. Now it has reached the point where he can hardly walk to the bathroom. He has also very poor appetite and has only been drinking ensure for the past 2 weeks. Eating any solid food makes him gag. He was recently admitted here in November for Right lower lobe pneumonia, with high fevers, low immunoglobulins and during that time had a transfusion reaction to IVIG with flash pulmonary edema and developed afib and had NSTEMI for which he was transferred to [facility] where it was felt his NSTEMI was due to demand ischemia and no cardiac intervention was done. During that admission also he was very anemic with hh at 6.0. Work up in the ED again showed that his hemoglobin has dropped to 6.8 with no signs of bleeding . he complained of dizziness and light headedness while standing up. He is being admitted for symptomatic anemia. Dysphagia MRI negative for any mets or stroke, CT head negative for any abnormality at the base of the skull and jugular foramen which would explain the dysphagia. cookie swallow done. result pending. Clinically does not seem to have any aspiration. He was able to eat soft diet. Could have been esophageal spasm triggered by he thinks by some bad eggs. 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 will need radiation oncology referral for possible brain radiation patient instructed to call Dr Lennon's office and they will set up the appointment. Acute on chronic anemia r/o myelodysplastic process with thrombocytopenia vs. bone marrow infiltration by metastatic CA causing decreased marrow activity His iron profile from October was nonconclusive with low TIBC because of element of anemia of chronic disease. His STFR was high at 31 which shows iron deficiency. He received 3 doses of erythropoietin alpha in november 2019. Occult blood neg, bone marrow biopsy had recently been discussed with patient on recent heme/onc visit due worsening anemia Ferritin very high Received 3 units of PRBC. Prostate cancer with bone metastasis last chemotherapy in August 2019 Patient self catheterizes about 6/ day Thrombocytopenia myelodysplastic process vs extensive bony metastasis. Hypertension continue metoprolol H/o Paroxysmal Atrial fibrillation now in sinus rhythm continue metoprolol H/O NSTEMI due to demand ischemia in the setting of infection, reaction to IVIG with flash pulmonary edema and Afib. in november 2019 continue statin and betablocker was transferred to [facility] no intervention . No intervention was done there. DISCHARGE MEDICATIONS: Please see below. ALLERGIES: Please see below. PHYSICAL EXAMINATION ON DISCHARGE: VITAL SIGNS: Please see below. General Exam: Positive: Alert, Cooperative, No Acute Distress Eye Exam: Positive: PERRLA, Conjunctiva & lids normal, EOMI; Negative: Sclera icteric ENT Exam: Positive: Atraumatic, Mucous membr. moist/pink, Pharynx Normal Neck Exam: Positive: Supple; Negative: JVD, thyromegaly Chest Exam: Positive: Clear to auscultation, Normal air movement Heart Exam: Positive: Rate Normal, Regular Rhythm, Normal S1, Normal S2; Negative: Murmurs, Rubs Abdomen Exam: Positive: Normal bowel sounds, Soft; Negative: Tenderness, Hepatosplenomegaly Extremity Exam: Positive: Normal pulses; Negative: Clubbing, Cyanosis, Edema Skin Exam: Positive: Nl turgor and temperature; Negative: Breakdown, Lesion Neuro Exam: Positive: Normal Speech, Strength at 5/5 X4 ext, Normal Tone LABORATORY DATA: Please see below. IMAGING: MRI Brain: IMPRESSION: 1. Images are mildly motion degraded. 2. No evidence of acute infarct. 3. Diffuse osseous metastatic disease. 4. Abnormal signal intensity in left frontotemporoparietal extra-axial space measuring up to 12 mm in thickness may reflect hematoma and/or extra-axial tumor. Recommend CT head correlation. 5. If the patient is a candidate, postcontrast MRI sequences of the brain are also suggested for further evaluation of the dura and epidural spaces CT Head: 1. No hyperdense intracranial hemorrhage. 2. Left frontotemporal extra-axial soft tissue attenuation most likely reflects epidural tumor. 3. 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 ACTIVITY: [As tolerated]. DIET: Mechanical soft DISPOSITION: 01 Home, Self-Care. DISCHARGE INSTRUCTIONS: Follow up Dr Lennon in 1 week Needs referral to radiation oncology ITEMS TO FOLLOWUP ON ON OUTPATIENT: Follow up Cookie swallow DISCHARGE CONDITION: [Stable]. TIME SPENT ON DISCHARGE: 35 minutes. Vital Signs/I&Os Vital Signs Date Time Temp Pulse Resp B/P (MAP) Pulse Ox O2 Delivery O2 Flow Rate FiO2 01/13/20 09:12 83 117/69 01/13/20 06:00 98.7 18 99 Room Air I&O- Last 24 Hours up to 6 AM 01/13/20 06:00 Intake Total 1520 ml Output Total 1850 ml Balance -330 ml Laboratory Data Labs 24H Laboratory Tests 2 01/13/20 06:52: Immature Granulocyte % (Auto) , Neutrophils (%) (Auto) , Nucleated Red Blood Cells % (auto) 4.0H, Neutrophils 45, Band Neutrophils 10, Lymphocytes (Manual) 16, Monocytes (Manual) 3, Eosinophils (Manual) 5H, Basophils (Manual) 2H, Metamyelocytes 11H, Myelocytes 4H, Promyelocytes 2H, Atypical Lymphocytes 2, Hypochromasia 1+, Anisocytosis 2+, Macrocytosis 1+, Giant Platelets 1+, Platelet Estimate DECREASED, Immature Platelet Fraction 5.1, Anion Gap 7L, Glomerular Filtration Rate > 60.0, Calcium Level 7.2L CBC/BMP Laboratory Tests 01/13/20 06:52 Discharge Medications Scheduled Atorvastatin Calcium (Atorvastatin Calcium) 40 Mg Tablet, 40 MG PO QHS, (Reported) Metoprolol Tartrate (Metoprolol Tartrate) 25 Mg Tablet, 12.5 MG PO BID, (Reported) Scheduled PRN Ondansetron (Ondansetron Odt) 4 Mg Tab.rapdis, 4 MG SL Q6HP PRN for NAUSEA Allergies Coded Allergies: IgA less than or equal to 50 mcg/mL (Verified Adverse Reaction, Severe, dev rigors, temp 103.8, severe sob, hr 150's, desat to 70's , 11/30/19) immune globulin,gamma (IgG) human (Verified Adverse Reaction, Severe, dev rigors, temp 103.8, severe sob, hr 150's, desat to 70's , 11/30/19) proline (Verified Adverse Reaction, Severe, dev rigors, temp 103.8, severe sob, hr 150's, desat to 70's , 11/30/19) KATIE GONZALEZ MD Jan 13, 2020 16:09
[2020-01-18] MEDS ORDERED: ATOR40TA75 PO (10:12)
[2020-01-18] MEDS ORDERED: METO1TAB87 PO (10:13)
--- NOTE | 2020-01-23 10:14 | ECGEPIP ---
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
--- NOTE | 2020-02-05 10:24 | REP ---
ESOPHAGRAM SINGLE CONTRAST The procedure was performed under the direct supervision of Dr. Rosales. The images were reviewed with Dr. Rosales. Liquid barium was given in the prone oblique position During the oral and pharyngeal stages of deglutition, there is laryngeal penetration. There is mass effect on or in the cervical esophagus just below the larynx. Recommend a soft tissue neck CT. Esophageal transport is prompt and efficient, and there is no evidence of esophagitis, stricture, mucosal ring, or hiatal hernia. There is gastroesophageal reflux demonstrated to above the level of the tanner. IMPRESSION: 1. Laryngeal penetration. 2. There is mass effect on or in the cervical esophagus just below the larynx. Recommend soft tissue neck CT. 3. There is gastroesophageal reflux demonstrated to above the level of the tanner. 0.7 minutes of fluoroscopy time was utilized for this procedure. [id number]
== END 2020-01-13 12:28 | disposition home or self-care (01) | DRG 544 ==
LOC: M ED 10:55 → M ED INP 14:23 → M MSPAV 16:10
PROVIDERS: ADMIT Internal Medicine Nephrology; ATTEND Internal Medicine Nephrology
DX: C79.51 Secondary malignant neoplasm of bone (principal); D63.0 Anemia in neoplastic disease; C61 Malignant neoplasm of prostate; D69.6 Thrombocytopenia, unspecified; I48.0 Paroxysmal atrial fibrillation; I25.2 Old myocardial infarction; I10 Essential (primary) hypertension; R13.10 Dysphagia, unspecified; D49.6 Neoplasm of unspecified behavior of brain; Z79.899 Other long term (current) drug therapy; Z88.8 Allergy status to other drugs, medicaments and biological substances; Z92.21 Personal history of antineoplastic chemotherapy

== ENCOUNTER → 2020-02-11 | Outpatient (REF) | payer MEDICARE ==
[~2020-02-11] MED LIST changes: +ATOR40TA75 PO; +ONDA4TAB6 SL
[2020-02-11 17:49] LABS: AMORPHOUS SEDIMENT MODERATE (NEGATIVE); APPEARANCE, URINE TURBID (CLEAR); BACTERIA, URINE AUTO 1+ (NEGATIVE); BILIRUBIN, URINE AUTO NEGATIVE (NEGATIVE); BLOOD, URINE BLOOD 1+ (NEGATIVE); COLOR, URINE AMBER (YELLOW); GLUCOSE, URINE (UA) AUTO NEGATIVE (NEGATIVE); KETONE, URINE AUTO TRACE mg/dL (NEGATIVE); LEUKOCYTE ESTERASE, URINE AUTO 3+ (NEGATIVE); MUCUS, URINE SMALL (NEGATIVE); NITRITE, URINE AUTO POSITIVE (NEGATIVE); PROTEIN, URINE AUTO 2+ mg/dL (NEGATIVE); RBC, URINE AUTO 9 /HPF (0-3); SPECIFIC GRAVITY URINE AUTO 1.017 (1.002-1.035); SQUAMOUS EPITHELIAL CELL UR AU 0 /HPF (0-6); WBC, URINE AUTO TNTC /HPF (0-3)
== END ==
LOC: M LAB REF 16:38
PROVIDERS: ATTEND Family Medicine
DX: C61 Malignant neoplasm of prostate (principal); C79.51 Secondary malignant neoplasm of bone; C79.31 Secondary malignant neoplasm of brain; R13.10 Dysphagia, unspecified; I25.10 Atherosclerotic heart disease of native coronary artery without angina pectoris; Z79.899 Other long term (current) drug therapy